=== PATIENT | female | born 1940 | race Caucasian/White ===

== ENCOUNTER → 2016-04-25 | Outpatient (CLI) | payer MEDICARE, OTHER ==
[2016-04-25 16:27] LABS: APPEARANCE,URINE CLEAR; BILIRUBIN,URINE NEGATIVE (NEGATIVE); GLUCOSE, URINE 50 mg/dL (NEGATIVE); KETONES,URINE TRACE mg/dL (NEGATIVE); LEUKOCYTE ESTERASE,URINE NEGATIVE (NEGATIVE); NITRITE,URINE NEGATIVE (NEGATIVE); PROTEIN,URINE NEGATIVE (NEGATIVE); URINE SPECIFIC GRAVITY 1.032; UROBILINOGEN,URINE NEGATIVE mg/dL (<2.0)
[2016-04-25 18:53] LABS: PROTHROMBIN TIME 13.3 SEC (11.4-15.4)
[2016-04-25 19:01] LABS: ABSOLUTE EOSINOPHILS # (AUTO) 0.2 10^3/uL (0.0-0.6); ABSOLUTE LYMPHOCYTES (AUTO) 2.2 10^3/uL (0.5-4.7); ABSOLUTE MONOCYTES (AUTO) 0.7 10^3/uL (0.1-1.4); ABSOLUTE NEUT (AUTO) 5.3 10^3/uL (1.7-8.2); BASOPHILS % (AUTO) 0.4 % (0-2); HEMATOCRIT 35.2 % (36.0-47.0); HEMOGLOBIN 11.6 g/dL (12.0-15.5); HGB HCT DIFFERENCE -0.4; LYMPHOCYTES % (AUTO) 26.2 % (13-45); MEAN CORPUSCULAR HEMOGLOBIN 27.3 pg (27.0-33.4); MEAN CORPUSCULAR VOLUME 83 fl (80-97); RED BLOOD COUNT 4.26 10^6/uL (3.72-5.28); RED CELL DISTRIBUTION WIDTH 14.8 % (11.5-14.0); SEGMENTED NEUTROPHILS % (AUTO) 63.4 % (42-78); WHITE BLOOD COUNT 8.4 10^3/uL (4.0-10.5)
[2016-04-25 19:06] LABS: ALANINE AMINOTRANSFERASE 31 U/L (9-52); ALBUMIN 4.1 g/dL (3.5-5.0); ALKALINE PHOSPHATASE 105 U/L (38-126); ANION GAP 12 (5-19); ASPARTATE AMINO TRANSFERASE 21 U/L (14-36); BILIRUBIN,TOTAL 0.6 mg/dL (0.2-1.3); BLOOD UREA NITROGEN 29 mg/dL (7-20); CARBON DIOXIDE 29 mmol/L (22-30); CHLORIDE 102 mmol/L (98-107); CREATININE RESULT 0.97 mg/dL (0.52-1.25); GLUCOSE 194 mg/dL (75-110); POTASSIUM 4.5 mmol/L (3.6-5.0); SODIUM 143.3 mmol/L (137-145); TOTAL PROTEIN 6.5 g/dL (6.3-8.2)
== END ==
LOC: LAB 15:24
PROVIDERS: ATTEND Physical Medicine & Rehabilitation Pain Medicine
DX: D64.9 Anemia, unspecified (principal); Z79.01 Long term (current) use of anticoagulants
CPT/HCPCS: 36415; 80053; 81001; 85025; 85610

== ENCOUNTER → 2016-04-28 | Outpatient (CLI) | payer MEDICARE, OTHER | LOC: RAD 12:48 | PROVIDERS: ATTEND Physical Medicine & Rehabilitation Pain Medicine | DX: M17.0 Bilateral primary osteoarthritis of knee (principal) ==

== ENCOUNTER 2016-08-24 17:24 | Emergency (ER) | payer MEDICARE, OTHER ==
--- NOTE | 2016-08-24 19:41 | ER Document Report ---
ED Medical Screen (RME) - General Chief Complaint: Fall Injury Stated Complaint: LEG SWELLING Time Seen by Provider: 08/24/16 19:31 Notes: 76-year-old female patient with diabetes, coronary artery disease, venous insufficiency and peripheral edema. Reports the swelling has been getting worse for the last several weeks, much worse past few days with increased redness to the lower legs. She was previously treated for cellulitis a few weeks back by history. She has had vein stripping in both lower extremities for using in her coronary artery bypass grafts. Also complains of a burning sensation to the bottom of her feet, she seemed surprised with the explanation being her diabetic peripheral neuropathy. Think she was ever told that she had this. The redness in the legs is more than normal, but not as bad as it was with her previous cellulitis. I have greeted and performed a rapid initial assessment of this patient. A comprehensive ED assessment and evaluation of the patient, analysis of test results and completion of the medical decision making process will be conducted by additional ED providers. TRAVEL OUTSIDE OF THE [place] IN LAST 30 DAYS: No - Related Data Allergies/Adverse Reactions: No Known Allergies Allergy (Verified 01/07/15 19:57) Past Medical History - Past Medical History Cardiac Medical History: Reports: Hx Hypercholesterolemia, Hx Hypertension Endocrine Medical History: Reports: Hx Diabetes Mellitus Type 2 Renal/ Medical History: Denies: Hx Peritoneal Dialysis Musculoskeltal Medical History: Reports Hx Arthritis Past Surgical History: Reports: Hx Cardiac Surgery - bypass x4 - Immunizations Hx Diphtheria, Pertussis, Tetanus Vaccination: - unknown Physical Exam - Vital signs Vitals: Temp Pulse Resp BP Pulse Ox 98.5 F 69 16 147/62 H 95 08/24/16 17:31 08/24/16 17:31 08/24/16 17:31 08/24/16 17:31 08/24/16 17:31 Course - Vital Signs Vital signs: Temp Pulse Resp BP Pulse Ox 98.5 F 69 16 147/62 H 95 08/24/16 17:31 08/24/16 17:31 08/24/16 17:31 08/24/16 17:31 08/24/16 17:31
[2016-08-24 20:49] LABS: ABSOLUTE EOSINOPHILS # (AUTO) 0.1 10^3/uL (0.0-0.6); ABSOLUTE LYMPHOCYTES (AUTO) 2.4 10^3/uL (0.5-4.7); ABSOLUTE MONOCYTES (AUTO) 0.7 10^3/uL (0.1-1.4); BASOPHILS % (AUTO) 0.4 % (0-2); EOSINOPHILS % (AUTO) 1.5 % (0-6); HEMATOCRIT 36.9 % (36.0-47.0); HEMOGLOBIN 11.5 g/dL (12.0-15.5); HGB HCT DIFFERENCE -2.4; LYMPHOCYTES % (AUTO) 23.3 % (13-45); MEAN CORPUSCULAR HEMOGLOBIN 25.9 pg (27.0-33.4); MEAN CORPUSCULAR HGB CONC 31.2 g/dL (32.0-36.0); MEAN CORPUSCULAR VOLUME 83 fl (80-97); MONOCYTES % (AUTO) 6.7 % (3-13); RED BLOOD COUNT 4.44 10^6/uL (3.72-5.28); RED CELL DISTRIBUTION WIDTH 15.6 % (11.5-14.0); SEGMENTED NEUTROPHILS % (AUTO) 68.1 % (42-78); WHITE BLOOD COUNT 10.2 10^3/uL (4.0-10.5)
[2016-08-24 21:01] LABS: ALANINE AMINOTRANSFERASE 27 U/L (9-52); ALBUMIN 4.4 g/dL (3.5-5.0); ALKALINE PHOSPHATASE 108 U/L (38-126); ANION GAP 13 (5-19); ASPARTATE AMINO TRANSFERASE 24 U/L (14-36); BILIRUBIN,DIRECT 0.4 mg/dL (0.0-0.4); BILIRUBIN,TOTAL 0.5 mg/dL (0.2-1.3); BLOOD UREA NITROGEN 29 mg/dL (7-20); CALCIUM 9.7 mg/dL (8.4-10.2); CARBON DIOXIDE 28 mmol/L (22-30); CHLORIDE 102 mmol/L (98-107); CREATININE RESULT 0.96 mg/dL (0.52-1.25); GLUCOSE 135 mg/dL (75-110); POTASSIUM 4.7 mmol/L (3.6-5.0); SODIUM 142.5 mmol/L (137-145); TOTAL PROTEIN 7.3 g/dL (6.3-8.2)
[2016-08-24] MEDS ORDERED: SULFAMETHOX/TRIMETH 800-160 MG/10 ML VIAL IV ONE (21:53)
[2016-08-24 21:56] LABS: APPEARANCE,URINE CLEAR; BILIRUBIN,URINE NEGATIVE (NEGATIVE); GLUCOSE, URINE NEGATIVE (NEGATIVE); KETONES,URINE NEGATIVE (NEGATIVE); LEUKOCYTE ESTERASE,URINE NEGATIVE (NEGATIVE); NITRITE,URINE NEGATIVE (NEGATIVE); PROTEIN,URINE NEGATIVE (NEGATIVE); URINE SPECIFIC GRAVITY 1.017; UROBILINOGEN,URINE NEGATIVE mg/dL (<2.0)
--- NOTE | 2016-08-24 22:10 | ER Document Report ---
ED Extremity Problem, Lower - General Chief Complaint: Fall Injury Stated Complaint: LEG SWELLING Time Seen by Provider: 08/24/16 19:31 Mode of Arrival: Ambulatory Information source: Patient TRAVEL OUTSIDE OF THE [place] IN LAST 30 DAYS: No - HPI Patient complains to provider of: Pain, Swelling Location: Ankle, Foot, Leg - BILAT. Occurred: Yesterday Where: Home Onset/Duration: Gradual Quality of pain: Dull, Fullness, Pressure Severity: Moderate Context: Other - NO INJURY OR INCIDENT Recent injury: No Associated symptoms: Painful ambulation. denies: Chest pain, Chills, Fever, Rapid heart rate, Short of breath, Unable to bear weight Exacerbated by: Hanging down, Movement, Walking Relieved by: Elevation, Rest - Related Data Allergies/Adverse Reactions: No Known Allergies Allergy (Verified 01/07/15 19:57) Past Medical History - General Information source: Patient - Social History Smoking Status: Unknown if Ever Smoked Cigarette use (# per day): No Chew tobacco use (# tins/day): No Frequency of alcohol use: None Drug Abuse: None Lives with: Family Family History: Reviewed & Not Pertinent Patient has suicidal ideation: No Patient has homicidal ideation: No - Past Medical History Cardiac Medical History: Reports: Hx Coronary Artery Disease, Hx Hypercholesterolemia, Hx Hypertension Denies: Hx Congestive Heart Failure, Hx Peripheral Vascular Disease, Hx Pulmonary Embolism Pulmonary Medical History: Reports: None EENT Medical History: Reports: None Neurological Medical History: Reports: None Endocrine Medical History: Reports: Hx Diabetes Mellitus Type 2 Renal/ Medical History: Reports: None. Denies: Hx Peritoneal Dialysis Malignancy Medical History: Reports: None GI Medical History: Reports: None Musculoskeltal Medical History: Reports Hx Arthritis Psychiatric Medical History: Reports: None Past Surgical History: Reports: Hx Cardiac Surgery - bypass x4, Hx Coronary Artery Bypass Graft - 1992 - Immunizations Hx Diphtheria, Pertussis, Tetanus Vaccination: - unknown Review of Systems - Review of Systems Constitutional: No symptoms reported. denies: Chills, Fever EENT: No symptoms reported Cardiovascular: No symptoms reported Respiratory: No symptoms reported Gastrointestinal: No symptoms reported Genitourinary: No symptoms reported Female Genitourinary: Post menopausal Musculoskeletal: See HPI Skin: See HPI Neurological/Psychological: No symptoms reported Physical Exam - Vital signs Vitals: Temp Pulse Resp BP Pulse Ox 98.5 F 69 16 147/62 H 95 07/05/17 17:31 08/24/16 17:31 08/24/16 17:31 08/24/16 17:31 08/24/16 17:31 Interpretation: Hypertensive. No: Tachycardic, Tachypneic, Febrile - General General appearance: Appears well, Alert In distress: None - HEENT Head: Normocephalic Eyes: Normal Conjunctiva: Normal Ears: Normal Nasal: Normal Mouth/Lips: Normal Mucous membranes: Normal - Respiratory Respiratory status: No respiratory distress Breath sounds: Normal - Cardiovascular Rhythm: Regular Heart sounds: Normal auscultation Murmur: No - Abdominal Inspection: Obese - Extremities General upper extremity: Normal inspection General lower extremity: Tender - LOWER LEGS, Edema - LOWER LEGS, ANKLES, FEET, Normal color - ERYTHEMA & WARMTH. No: Normal inspection - Neurological Neuro grossly intact: Yes Cognition: Normal Orientation: AAOx4 - Psychological Associated symptoms: Normal affect, Normal mood - Skin Skin Temperature: Warm Skin Moisture: Dry Skin Color: Normal Skin Turgor: Elastic Skin irregularity: Erythema - DISTAL LEGS, Tender indurated area - SLIGHT, LOWER LEGS Course - Vital Signs Vital signs: Temp Pulse Resp BP Pulse Ox 98.5 F 69 16 147/62 H 95 08/24/16 17:31 08/24/16 17:31 08/24/16 17:31 08/24/16 17:31 08/24/16 17:31 - Laboratory Result Diagrams: 08/24/16 20:16 08/24/16 20:16 Laboratory results interpreted by me: 08/24/16 08/24/16 20:16 20:16 Hgb 11.5 L MCH 25.9 L MCHC 31.2 L RDW 15.6 H BUN 29 H Est GFR (Non-Af Amer) 56 L Glucose 135 H Discharge - Discharge Condition: Stable Disposition: HOME, SELF-CARE Instructions: Cellulitis ([facility]) Additional Instructions: TAKE BACTRIM DIRECTED. KEEP YOUR FEET AND LEGS ELEVATED MUCH POSSIBLE. CONTINUE ALL OF YOUR USUAL MEDICATIONS. FOLLOW UP WITH YOUR PRIMARY CARE PROVIDER TOMORROW OR MONDAY, CALL TOMORROW A.M. FOR APPOINTMENT. RETURN TO E.R. PROMPTLY IF YOU BEGIN GETTING WORSE, ANY TIME. Prescriptions: Sulfamethoxazole/Trimethoprim [Sulfamethoxazole-Tmp Ds Tablet] 2 each PO BID # 40 tablet Referrals: NATHAN SHERWOOD MD [Primary Care Provider] - Follow up tomorrow
[2016-08-25 03:01] VITALS: BP 171/56
== END 2016-08-25 03:01 | disposition home or self-care (01) ==
LOC: ER 17:24
DX: L03.116 Cellulitis of left lower limb (principal); E78.00 Pure hypercholesterolemia, unspecified; I10 Essential (primary) hypertension; E11.9 Type 2 diabetes mellitus without complications; I25.10 Atherosclerotic heart disease of native coronary artery without angina pectoris; Z95.1 Presence of aortocoronary bypass graft; E66.9 Obesity, unspecified
CPT/HCPCS: 99283; 96374; 36415; 87040; 85025; 80053; 81001; J3490

== ENCOUNTER 2016-08-26 08:14 | Emergency (ER) | payer MEDICARE, OTHER ==
[2016-08-26] MEDS ORDERED: CETIRIZINE 10 MG TABLET PO ONE (08:47)
[2016-08-26] MEDS ORDERED: METHYLPREDNISOLONE INJ 125 MG/2 ML SDV IM ONE (08:47)
[2016-08-26] MEDS ORDERED: FAMOTIDINE 20 MG TABLET PO ONE (08:47)
--- NOTE | 2016-08-26 08:48 | ER Document Report ---
ED Allergic Reaction - General Chief Complaint: Allergic Reaction Stated Complaint: DIFFICULTY BREATHING Time Seen by Provider: 08/26/16 08:37 Mode of Arrival: Ambulatory Information source: Patient Notes: Patient is a 76-year-old female who presents to the ER today for possible allergic reaction to Bactrim. Patient was placed on Bactrim 2 days ago for cellulitis in her bilateral lower extremities, has been on Bactrim before and states that she "just get the rash." She says that when she does have Bactrim she does have to have Pepcid and Zyrtec to go with it which stopped the reaction. She does have these prescriptions filled already, however has not taken it with the Bactrim because the hives started last night and she did not take any of her morning medications this morning yet. She denies any difficulty breathing, swelling in the throat, chest tightness. She just complains of itching and hives over her body. She states she has been on multiple medications for the cellulitis and "Bactrim is the only thing that ever works." TRAVEL OUTSIDE OF THE [place] IN LAST 30 DAYS: No - Related Data Allergies/Adverse Reactions: sulfamethoxazole [From Bactrim] Allergy (Verified 08/26/16 08:20) trimethoprim [From Bactrim] Allergy (Verified 08/26/16 08:20) Past Medical History - General Information source: Patient - Social History Smoking Status: Never Smoker Family History: Reviewed & Not Pertinent Patient has suicidal ideation: No Patient has homicidal ideation: No - Past Medical History Cardiac Medical History: Reports: Hx Coronary Artery Disease, Hx Hypercholesterolemia, Hx Hypertension Denies: Hx Congestive Heart Failure, Hx Peripheral Vascular Disease, Hx Pulmonary Embolism Endocrine Medical History: Reports: Hx Diabetes Mellitus Type 2 Renal/ Medical History: Denies: Hx Peritoneal Dialysis Musculoskeltal Medical History: Reports Hx Arthritis Past Surgical History: Reports: Hx Cardiac Surgery - bypass x4, Hx Coronary Artery Bypass Graft - 1992 - Immunizations Hx Diphtheria, Pertussis, Tetanus Vaccination: - unknown Review of Systems - Review of Systems Constitutional: No symptoms reported EENT: No symptoms reported Cardiovascular: No symptoms reported Respiratory: No symptoms reported Gastrointestinal: No symptoms reported Genitourinary: No symptoms reported Female Genitourinary: No symptoms reported Musculoskeletal: No symptoms reported Skin: See HPI Hematologic/Lymphatic: No symptoms reported Neurological/Psychological: No symptoms reported Physical Exam - Vital signs Vitals: Temp Pulse Resp BP Pulse Ox 97.5 F 65 16 117/58 L 95 08/26/16 08:21 08/26/16 08:21 08/26/16 08:21 08/26/16 08:21 08/26/16 08:21 - Notes Notes: PHYSICAL EXAMINATION: GENERAL: Well-appearing and in no acute distress. HEAD: Atraumatic, normocephalic. EYES: Pupils equal round and reactive to light, extraocular movements intact, sclera anicteric, conjunctiva are normal. ENT: ear canals without erythema or foreign body, TMs pearly zhu with good bony landmarks, nares patent, oropharynx clear without exudates. Moist mucous membranes. Airway patent, no edema to the airway or oropharynx NECK: Normal range of motion, supple without lymphadenopathy LUNGS: CTAB and equal. No wheezes rales or rhonchi. HEART: Regular rate and rhythm without murmurs ABDOMEN: Soft, no tenderness. No guarding, no rebound BACK: no vertebral tenderness, normal ROM GI/: no CVA tenderness EXTREMITIES: Normal range of motion, No cyanosis. NEUROLOGICAL: Cranial nerves grossly intact. Normal sensory/motor exams. PSYCH: Normal mood, normal affect. SKIN: Warm, Dry, normal turgor, urticaria over bilateral lower, upper extremities, some on the chest and face, some excoriation present, bilateral lower extremities with erythema and 1+ pitting edema consistent with cellulitis Course - Re-evaluation Re-evalutation: 08/26/16 10:13 Patient wants to stay on the Bactrim, she really just wants me to tell her today to add the Pepcid and Zyrtec back into her regimen. She absolutely refuses to switch antibiotics stating that "I am fine, just keep me on the Bactrim and I will add any other medications to help with the hives." She did receive Pepcid and Zyrtec here as well as Solu-Medrol IM. She has no breathing difficulty or airway compromise, just hives. She has a follow-up in 5 days with her primary care provider about cellulitis. - Vital Signs Vital signs: Temp Pulse Resp BP Pulse Ox 97.5 F 65 16 117/58 L 95 08/26/16 08:21 08/26/16 08:21 08/26/16 08:21 08/26/16 08:21 08/26/16 08:21 Discharge - Discharge Clinical Impression: Cellulitis of left lower leg, Hives Condition: Stable Disposition: HOME, SELF-CARE Additional Instructions: Return immediately for any new or worsening symptoms. Follow up with primary care provider, call tomorrow to make followup appointment.
[2016-08-26 10:39] VITALS: BP 148/58
== END 2016-08-26 10:38 | disposition home or self-care (01) ==
LOC: ER 08:14
DX: L50.9 Urticaria, unspecified (principal); L03.116 Cellulitis of left lower limb; R06.00 Dyspnea, unspecified; I25.10 Atherosclerotic heart disease of native coronary artery without angina pectoris; E78.00 Pure hypercholesterolemia, unspecified; I10 Essential (primary) hypertension; E11.9 Type 2 diabetes mellitus without complications; Z88.3 Allergy status to other anti-infective agents; Z95.1 Presence of aortocoronary bypass graft
CPT/HCPCS: 99283; 96372; A9270 ×2; J2930

== ENCOUNTER 2017-01-15 03:07 | Observation (INO) | payer MEDICARE, OTHER ==
[2017-01-15 03:47] LABS: ABSOLUTE BASOPHILS # (AUTO) 0.1 10^3/uL (0.0-0.2); ABSOLUTE EOSINOPHILS # (AUTO) 0.2 10^3/uL (0.0-0.6); ABSOLUTE LYMPHOCYTES (AUTO) 2.3 10^3/uL (0.5-4.7); ABSOLUTE MONOCYTES (AUTO) 0.7 10^3/uL (0.1-1.4); ABSOLUTE NEUT (AUTO) 5.5 10^3/uL (1.7-8.2); BASOPHILS % (AUTO) 0.6 % (0-2); EOSINOPHILS % (AUTO) 1.8 % (0-6); HEMATOCRIT 36.4 % (36.0-47.0); HGB HCT DIFFERENCE -0.4; LYMPHOCYTES % (AUTO) 26.5 % (13-45); MEAN CORPUSCULAR VOLUME 82 fl (80-97); MONOCYTES % (AUTO) 7.6 % (3-13); RED BLOOD COUNT 4.46 10^6/uL (3.72-5.28); RED CELL DISTRIBUTION WIDTH 14.4 % (11.5-14.0); SEGMENTED NEUTROPHILS % (AUTO) 63.5 % (42-78); WHITE BLOOD COUNT 8.6 10^3/uL (4.0-10.5)
[2017-01-15 04:00] LABS: APPEARANCE,URINE CLEAR; BILIRUBIN,URINE NEGATIVE (NEGATIVE); GLUCOSE, URINE 50 mg/dL (NEGATIVE); KETONES,URINE NEGATIVE (NEGATIVE); LEUKOCYTE ESTERASE,URINE SMALL (NEGATIVE); NITRITE,URINE NEGATIVE (NEGATIVE); PROTEIN,URINE NEGATIVE (NEGATIVE); URINE SPECIFIC GRAVITY 1.008; UROBILINOGEN,URINE NEGATIVE mg/dL (<2.0)
--- NOTE | 2017-01-15 04:00 | ER Document Report ---
ED General - General Mode of Arrival: Medic Information source: Patient TRAVEL OUTSIDE OF THE [place] IN LAST 30 DAYS: No - HPI Onset: Just prior to arrival <PAN NOVAK - Last Filed: 01/15/17 03:51> <LIBBY PEPPER - Last Filed: 01/15/17 07:34> - General Chief Complaint: Chest Pain Stated Complaint: CHEST DISCOMFORT Time Seen by Provider: 01/15/17 03:40 Notes: Patient is a 76 year old female with a history of quadrouple cardiac bypass presents to the emergency department complaining of chest pain onset around 01: 30. Patient states that she went to bed around 2200 last night and woke up due to difficulty breathing and chest pain. Patient describes her chest pain as something heavy sitting on her chest. Patient states she thought she was having indigestion and proceeded to take a Tums, which did not help. Patient states she called her daughter who then gave her a Nitrostat which also did not help. Patient states she then called EMS and they told her to take baby aspirin prior to arrival and she did so. EMS gave her a dose of Adenosine due to her having SVT. At bedside, patient states that she feels better now and has no symptoms. (PAN NOVAK) - Related Data Allergies/Adverse Reactions: sulfamethoxazole [From Bactrim] Allergy (Verified 08/26/16 08:20) trimethoprim [From Bactrim] Allergy (Verified 08/26/16 08:20) Home Medications: Current Home Medications Atenolol 50 mg PO BID 01/15/17 [History] Atorvastatin Calcium [Lipitor 40 mg Tablet] 40 mg PO DAILY 01/15/17 [History] Gabapentin [Neurontin 300 mg Capsule] 300 mg PO Q12 01/15/17 [History] Gemfibrozil [Lopid 600 mg Tablet] 600 mg PO BID 01/15/17 [History] Glyburide/Metformin HCl [Glyburide-Metformin 5-500 mg] 1 each PO ACHSP PRN 01/15 [History] Isosorbide Dinitrate [Isordil Titradose 10 Mg Tablet] 5 mg PO BID 01/15/17 [ History] Meloxicam [Mobic] 15 mg PO DAILY 01/15/17 [History] Aurora-3/Dha/Epa/Fish Oil [Aurora 3 500 Softgel] 1 each PO DAILY 01/15/17 [History ] Paroxetine HCl [Paxil 20 mg Tablet] 20 mg PO DAILY 01/15/17 [History] Sitagliptin Phosphate [Januvia] 100 mg PO DAILY 01/15/17 [History] Valsartan/Hydrochlorothiazide [Valsartan-Hctz 320-12.5 mg Tab] 1 each PO DAILY 01/15/17 [History] Past Medical History - General Information source: Patient - Social History Smoking Status: Never Smoker Chew tobacco use (# tins/day): No Frequency of alcohol use: None Drug Abuse: None Family History: Reviewed & Not Pertinent Patient has suicidal ideation: No Patient has homicidal ideation: No - Past Medical History Cardiac Medical History: Reports: Hx Coronary Artery Disease, Hx Hypercholesterolemia, Hx Hypertension Endocrine Medical History: Reports: Hx Diabetes Mellitus Type 2 Musculoskeltal Medical History: Reports Hx Arthritis Past Surgical History: Reports: Hx Cardiac Surgery - bypass x4, Hx Coronary Artery Bypass Graft - 1992 - Immunizations Hx Diphtheria, Pertussis, Tetanus Vaccination: - unknown <PAN NOVAK - Last Filed: 01/15/17 03:51> Review of Systems - Review of Systems Constitutional: No symptoms reported EENT: No symptoms reported Cardiovascular: See HPI, Chest pain Respiratory: See HPI, Short of breath Gastrointestinal: No symptoms reported Genitourinary: No symptoms reported Female Genitourinary: No symptoms reported Musculoskeletal: No symptoms reported Skin: No symptoms reported Hematologic/Lymphatic: No symptoms reported Neurological/Psychological: No symptoms reported -: Yes All other systems reviewed and negative <PAN NOVAK - Last Filed: 01/15/17 03:51> Physical Exam <PAN NOVAK - Last Filed: 01/15/17 03:51> <LIBBY PEPPER - Last Filed: 01/15/17 07:34> - Vital signs Vitals: Pulse Ox 97 01/15/17 03:24 - Notes Notes: GENERAL: Alert, interacts well. No acute distress. HEAD: Normocephalic, atraumatic. EYES: Pupils equal, round, and reactive to light. Extraocular movements intact. ENT: Oral mucosa moist, tongue midline. NECK: Full range of motion. Supple. Trachea midline. LUNGS: Clear to auscultation bilaterally, no wheezes, rales, or rhonchi. No respiratory distress. HEART: Mild tachycardia. No murmurs, gallops, or rubs. ABDOMEN: Soft, non-tender. Non-distended. Bowel sounds present in all 4 quadrants. EXTREMITIES: Moves all 4 extremities spontaneously. 1+ pitting edema to LLE, no edema to RLE. Radial and dorsalis pedis pulses 2/4 bilaterally. No cyanosis. NEUROLOGICAL: Alert and oriented x3. Normal speech. PSYCH: Normal affect, normal mood. SKIN: Warm, dry, normal turgor. No rashes or lesions noted. (PAN NOVAK) Course - Laboratory Result Diagrams: 01/15/17 03:30 01/15/17 03:30 <PAN NOVAK - Last Filed: 01/15/17 03:51> - Laboratory Result Diagrams: 01/15/17 03:30 01/15/17 03:30 <LIBBY PEPPER - Last Filed: 01/15/17 07:34> - Re-evaluation Re-evalutation: 01/15/17 05:17 CBC unremarkable, CMP shows mild renal failure, negative troponin at 0.030. Urinalysis grossly unremarkable small leukocyte esterase but she has no symptoms and there only 9 WBCs. I am not going to treat this at this time but sent for culture. Chest x-ray is unremarkable, EKG has slightly deeper T-wave inversions than previously but no new T-wave inversions. Patient's pain has completely resolved, likely induced by the elevated heart rate however given her history of feel it is prudent to watch her for a full chest pain rule out in the hospital, discussed this with Dr. Graves the hospitalist who agrees to place her on his service in observation status on the telemetry care floor. 01/15/17 05:19 Hospitals will continue to care for her hypertension (LIBBY PEPPER) - Vital Signs Vital signs: Temp Pulse Resp BP Pulse Ox 102 H 18 170/78 H 95 01/15/17 03:39 01/15/17 07:02 01/15/17 07:02 01/15/17 07:02 - Laboratory Laboratory results interpreted by me: 01/15/17 01/15/17 01/15/17 03:30 03:30 03:30 RDW 14.4 H Sodium 146.6 H BUN 23 H Est GFR (Non-Af Amer) 56 L Glucose 166 H Direct Bilirubin 0.5 H AST 42 H TSH Urine Glucose (UA) 50 H Ur Leukocyte Esterase SMALL H 01/15/17 03:30 RDW Sodium BUN Est GFR (Non-Af Amer) Glucose Direct Bilirubin AST TSH 5.46 H Urine Glucose (UA) Ur Leukocyte Esterase - EKG Interpretation by Me Additional EKG results interpreted by me: 01/15/17 05:19 EKG shows sinus tachycardia at a rate of 105, SVT has resolved, patient continues to have T-wave inversions in leads I, aVL and V2, these are slightly deeper than prior EKG on 01/19/2016 however they are not new, left anterior hemiblock, slightly prolonged QT interval, no ST segment elevations or depressions, poor R-wave progression per my interpretation. (LIBBY PEPPER) Discharge <PAN NOVAK - Last Filed: 01/15/17 03:51> - [facility] Admitted: Telemetry <LIBBY PEPPER - Last Filed: 01/15/17 07:34> - Discharge Clinical Impression: Chest pain, rule out acute myocardial infarction Hypertension Qualifiers: Hypertension type: essential hypertension Qualified Code(s): I10 - Essential ( primary) hypertension Condition: Fair Disposition: ADMITTED OBSERVATION Scribe Attestation: 01/15/17 07:34 I personally performed the services described in the documentation, reviewed and edited the documentation which was dictated to the scribe in my presence, and it accurately records my words and actions. (LIBBY PEPPER) Scribe Documentation - Scribe Written by Jami:: Jami Taylor, 01/15/2017 04:03 acting as scribe for :: Saida <PAN NOVAK - Last Filed: 01/15/17 03:51>
[2017-01-15 04:16] LABS: ALANINE AMINOTRANSFERASE 29 U/L (9-52); ALBUMIN 4.3 g/dL (3.5-5.0); ALKALINE PHOSPHATASE 114 U/L (38-126); ANION GAP 14 (5-19); ASPARTATE AMINO TRANSFERASE 42 U/L (14-36); BILIRUBIN,DIRECT 0.5 mg/dL (0.0-0.4); BILIRUBIN,TOTAL 0.5 mg/dL (0.2-1.3); BLOOD UREA NITROGEN 23 mg/dL (7-20); CALCIUM 9.3 mg/dL (8.4-10.2); CARBON DIOXIDE 27 mmol/L (22-30); CHLORIDE 106 mmol/L (98-107); CREATINE KINASE 61 U/L (30-135); CREATININE RESULT 0.96 mg/dL (0.52-1.25); GLUCOSE 166 mg/dL (75-110); POTASSIUM 4.8 mmol/L (3.6-5.0); SODIUM 146.6 mmol/L (137-145); TOTAL PROTEIN 6.9 g/dL (6.3-8.2)
[2017-01-15 04:27] LABS: CREATINE KINASE MB 1.1 ng/mL (<4.55); TROPONIN I 0.03 ng/mL
--- NOTE | 2017-01-15 04:39 | RADIOLOGY REPORT (SQ) ---
EXAM DESCRIPTION: CHEST SINGLE VIEW COMPLETED DATE/TIME: 01/15/2017 4:26 am REASON FOR STUDY: CP COMPARISON: 01/19/2016. EXAM PARAMETERS: NUMBER OF VIEWS: One view. TECHNIQUE: Single frontal radiographic view of the chest acquired. RADIATION DOSE: NA LIMITATIONS: None. FINDINGS: LUNGS AND PLEURA: No opacities, masses or pneumothorax. No pleural effusion. MEDIASTINUM AND HILAR STRUCTURES: No masses. Contour normal. HEART AND VASCULAR STRUCTURES: Heart normal in size. Atherosclerosis. BONES: No acute findings. HARDWARE: Sternotomy. OTHER: No other significant finding. IMPRESSION: NO ACUTE RADIOGRAPHIC FINDING IN THE CHEST. TECHNICAL DOCUMENTATION: JOB ID: [id number] Primary Data- All Rights Reserved
[2017-01-15] MEDS ORDERED: ASPIRIN 325 MG TABLET PO ONE (05:12)
[2017-01-15] MEDS ORDERED: METOPROLOL TARTRATE 25 MG TABLET PO ONE ×2 (05:16→09:00)
[2017-01-15] MEDS: HEPARIN SOD (PORCINE) 5,000 UNIT/ML 1 ML SYRINGE SUBCUT SCH ×3 (05:30→21:37)
--- NOTE | 2017-01-15 06:28 | PDOC H&P ---
History of Present Illness Admission Date/PCP: 01/15/17 05:16 NATHAN SHERWOOD MD Patient complains of: Chest tightness and shortness of breath History of Present Illness: MIAN ESCOTO is a 76 year old female with a past medical history of coronary artery disease status post coronary artery bypass graft 1997, obesity, GERD, obstructive sleep apnea, diabetes and hypertension. Patient presents with 1 hour of GERD symptoms not relieved by Tums associated with shortness of breath, chest tightness and palpitations. EMS was summoned and found heart rate in the 180s she received adenosine 6 followed by 12 mg resulting in conversion to normal sinus rhythm and resolution of symptoms. She is brought to the emergency room for evaluation where she is found to have an otherwise unremarkable workup she is referred to the hospitalist for admission patient admits compliance with medication but has abstained from BiPAP 3 days for a now healed areas of folliculitis on the scalp. Past Medical History Cardiac Medical History: Reports: Coronary Artery Disease, Hyperlipidema, Hypertension Denies: Congestive Heart Failure, Peripheral Vascular Disease, Pulmonary Embolism Pulmonary Medical History: Reports: Sleep Apnea Endocrine Medical History: Reports: Diabetes Mellitus Type 2, Obesity Musculoskeltal Medical History: Reports: Arthritis Past Surgical History Past Surgical History: Reports: Coronary Artery Bypass Graft - 1992 Social History Information Source: Patient Lives with: Family Smoking Status: Never Smoker Frequency of Alcohol Use: None Hx Recreational Drug Use: No - Advance Directive Resuscitation Status: Full Code Family History Family History: CAD Parental Family History Reviewed: Yes Children Family History Reviewed: Yes Sibling(s) Family History Reviewed.: Yes Medication/Allergy Home Medications: Oxycodone HCl/Acetaminophen [Percocet 5-325 mg Tablet] 1 - 2 tab PO Q4H PRN #12 tablet 01/07/15 Azithromycin 250 mg PO DAILY #4 tablet 01/20/16 Sulfamethoxazole/Trimethoprim [Sulfamethoxazole-Tmp Ds Tablet] 2 each PO BID # 40 tablet 08/24/16 Allergies/Adverse Reactions: sulfamethoxazole [From Bactrim] Allergy (Verified 08/26/16 08:20) trimethoprim [From Bactrim] Allergy (Verified 08/26/16 08:20) Review of Systems Constitutional: ABSENT: chills, fever(s), headache(s), weight gain, weight loss Eyes: ABSENT: visual disturbances Ears: ABSENT: hearing changes Cardiovascular: ABSENT: chest pain, dyspnea on exertion, edema, orthropnea, palpitations Respiratory: ABSENT: cough, hemoptysis Gastrointestinal: ABSENT: abdominal pain, constipation, diarrhea, hematemesis, hematochezia, nausea, vomiting Genitourinary: ABSENT: dysuria, hematuria Musculoskeletal: ABSENT: joint swelling Integumentary: ABSENT: rash, wounds Neurological: ABSENT: abnormal gait, abnormal speech, confusion, dizziness, focal weakness, syncope Psychiatric: ABSENT: anxiety, depression, homidical ideation, suicidal ideation Endocrine: ABSENT: cold intolerance, heat intolerance, polydipsia, polyuria Hematologic/Lymphatic: ABSENT: easy bleeding, easy bruising Physical Exam Vital Signs: Temp Pulse Resp BP Pulse Ox 102 H 16 147/74 H 96 01/15/17 03:39 01/15/17 05:34 01/15/17 05:34 01/15/17 05:34 Intake & Output 01/13/17 01/14/17 01/15/17 11:59 11:59 11:59 Intake Total 30 Balance 30 General appearance: PRESENT: no acute distress, well-developed, well-nourished Head exam: PRESENT: atraumatic, normocephalic Eye exam: PRESENT: conjunctiva pink, EOMI, PERRLA. ABSENT: scleral icterus Ear exam: PRESENT: normal external ear exam Mouth exam: PRESENT: moist, tongue midline Neck exam: ABSENT: carotid bruit, JVD, lymphadenopathy, thyromegaly Respiratory exam: PRESENT: clear to auscultation evy. ABSENT: rales, rhonchi, wheezes Cardiovascular exam: PRESENT: RRR. ABSENT: diastolic murmur, rubs, systolic murmur Pulses: PRESENT: normal dorsalis pedis pul Vascular exam: PRESENT: normal capillary refill GI/Abdominal exam: PRESENT: normal bowel sounds, soft. ABSENT: distended, guarding, mass, organolmegaly, rebound, tenderness Rectal exam: PRESENT: deferred Extremities exam: PRESENT: full ROM. ABSENT: calf tenderness, clubbing, pedal edema Neurological exam: PRESENT: alert, awake, oriented to person, oriented to place , oriented to time, oriented to situation, CN II-XII grossly intact. ABSENT: motor sensory deficit Psychiatric exam: PRESENT: appropriate affect, normal mood. ABSENT: homicidal ideation, suicidal ideation Skin exam: PRESENT: dry, intact, warm. ABSENT: cyanosis, rash Results Impressions: Chest X-Ray 01/15/17 03:09 IMPRESSION: NO ACUTE RADIOGRAPHIC FINDING IN THE CHEST. Assessment & Plan - Diagnosis (1) SVT (supraventricular tachycardia) Is this a current diagnosis for this admission?: Yes Plan: Telemetry bed observation, beta-bayron, evaluation of thyroid function and resumption of BiPAP use (2) Obstructive sleep apnea Is this a current diagnosis for this admission?: Yes Plan: Resume BiPAP (3) Diabetes Is this a current diagnosis for this admission?: Yes Plan: Home regiment with sliding scale insulin. (4) Chest pain, rule out acute myocardial infarction Is this a current diagnosis for this admission?: Yes Plan: Anticipate troponin leak given sustained SVT symptoms however currently asymptomatic. Follow-up serial cardiac enzymes (5) Hypertension Qualifiers: Hypertension type: essential hypertension Qualified Code(s): I10 - Essential (primary) hypertension Is this a current diagnosis for this admission?: Yes Plan: Optimize with beta-bayron followed by KARINA inhibitor - Time Time Spent: 30 to 50 Minutes - Inpatient Certification Medical Necessity: Need Close Monitoring Due to Risk of Patient Decompensation
[2017-01-15 06:37] LABS: FREE T3 3.36 pg/mL (2.77-5.27)
[2017-01-15 06:51] LABS: THYROID STIMULATING HORMONE 5.46 uIU/mL (0.47-4.68)
[2017-01-15] MEDS: DOCUSATE SODIUM 100 MG CAPSULE PO SCH ×2 (09:03→17:32)
[2017-01-15] MEDS: ACETAMINOPHEN 325 MG TABLET PO PRN (10:39)
[2017-01-15] MEDS ORDERED: DEXTROSE 50%-WATER 25 GM/50 ML DISP.SYRIN IV PRN ×2 (11:29)
[2017-01-15] MEDS ORDERED: DEXTROSE 40% GEL 15 GM TUBE PO PRN ×2 (11:29)
[2017-01-15] MEDS ORDERED: INSULIN LISPRO 100 UNIT/ML 3 ML VIAL SUBCUT PRN (11:29)
[2017-01-15] MEDS ORDERED: GLUCAGON,HUMAN RECOMB 1 MG INJ IM PRN (11:29)
[2017-01-15 11:43] LABS: CREATINE KINASE MB 1.28 ng/mL (<4.55)
[2017-01-15 11:52] LABS: TROPONIN I 0.08 ng/mL
--- NOTE | 2017-01-15 14:49 | PDOC PROGRESS REPORT ---
Subjective Progress Note for:: 01/15/17 Subjective:: f/u SVT, chest pain, dyspnea per H&P: MIAN ESCOTO is a 76 year old female with a past medical history of coronary artery disease status post coronary artery bypass graft 4 1997, obesity, GERD, obstructive sleep apnea, diabetes and hypertension. Patient presents with 1 hour of GERD symptoms not relieved by Tums associated with shortness of breath, chest tightness and palpitations. EMS was summoned and found heart rate in the 180s she received adenosine 6 followed by 12 mg resulting in conversion to normal sinus rhythm and resolution of symptoms. She is brought to the emergency room for evaluation where she is found to have an otherwise unremarkable workup she is referred to the hospitalist for admission patient admits compliance with medication but has abstained from BiPAP 3 days for a now healed areas of folliculitis on the scalp. she sees dr giraldo for cardio as outpt but has no prior hx of arrhythmia that she is aware of. she thinks he performed echo in his office in the last 3 months but is unaware of the results. not sure of her last stress test either. reports resolution of chest pain when her HR controlled but still feels very SOA , particularly when lying flat or with even minimal exertion. she denies fevers /chills, cough, hemoptysis, abd pain, n/v/d, arm pain, jaw pain, N/T, [place], syncope or presyncope. she's had no recurrence of SVT since her arrival. ROS: all systems reviewed, see above, remaining systems negative. Physical Exam Vital Signs: Temp Pulse Resp BP Pulse Ox 98.0 F 77 18 162/70 H 96 01/15/17 12:03 01/15/17 14:00 01/15/17 12:03 01/15/17 12:03 01/15/17 12:03 Intake & Output 01/14/17 01/15/17 01/16/17 06:59 06:59 06:59 Intake Total 30 Balance 30 Weight 113.2 kg 113.2 kg General appearance: PRESENT: morbidly obese, well-developed Head exam: PRESENT: atraumatic Eye exam: ABSENT: conjunctival injection, scleral icterus Mouth exam: PRESENT: moist, neck supple Neck exam: PRESENT: full ROM. ABSENT: JVD, lymphadenopathy, tenderness Respiratory exam: PRESENT: crackles - bases, wheezes - faint end exp. ABSENT: accessory muscle use Cardiovascular exam: PRESENT: irregular rhythm - frequent PVCs on monitor, systolic murmur - 2/6 low rumbling murmur at right 2nd space. ABSENT: tachycardia Pulses: PRESENT: normal carotid pulses, normal radial pulses Vascular exam: PRESENT: normal capillary refill GI/Abdominal exam: PRESENT: normal bowel sounds, soft. ABSENT: tenderness Extremities exam: ABSENT: pedal edema - trace Musculoskeletal exam: PRESENT: ambulatory, full ROM Neurological exam: PRESENT: alert, awake, oriented to person, oriented to place , oriented to time, oriented to situation, reflexes normal Psychiatric exam: PRESENT: appropriate affect, normal mood Skin exam: PRESENT: dry, warm Results Laboratory Results: 01/15/17 10:53 Magnesium 1.6 01/15/17 01/15/17 10:53 10:53 Creatine Kinase 59 CK-MB (CK-2) 1.28 Troponin I 0.080 EKG Comments: ST with rate 105, [id number] but without acute ischemic changes noted Impressions: Chest X-Ray 01/15/17 03:09 IMPRESSION: NO ACUTE RADIOGRAPHIC FINDING IN THE CHEST. Assessment & Plan - Diagnosis (1) SVT (supraventricular tachycardia) Is this a current diagnosis for this admission?: Yes Plan: unclear etiology; will treat with betablocker and consult cardio for his input. replace and monitor electrolytes (2) Chest pain, rule out acute myocardial infarction Is this a current diagnosis for this admission?: Yes Plan: enzymes remain equivocal and may just reflect troponin leak from the demand ischemia related to the degree of her tachycardia. will consult dr babcock for his opinion. continue ASA, statin and betablocker (3) Diabetes Qualifiers: Diabetes mellitus type: type 2 Diabetes mellitus complication status: with unspecified complications Diabetes mellitus nursing home insulin use: with impact hammer operator use Qualified Code(s): E11.8 - Type 2 diabetes mellitus with unspecified complications; Z79.4 - reeler operator (current) use of insulin; Z79.4 - reeler operator ( current) use of insulin; Z79.4 - [facility] (current) use of insulin; Z79.4 - reeler operator (current) use of insulin Is this a current diagnosis for this admission?: Yes Plan: hold oral agents for now; cover with SSI and add long acting if needed. (4) Hypertension Qualifiers: Hypertension type: essential hypertension Qualified Code(s): I10 - Essential (primary) hypertension Is this a current diagnosis for this admission?: Yes Plan: adjust meds depending on her clinical course and tachycardia (5) Obstructive sleep apnea Is this a current diagnosis for this admission?: Yes Plan: non compliant with home regimen and may be the trigger for all this; continue home CPAP (6) Dyspnea Qualifiers: Dyspnea type: unspecified Qualified Code(s): R06.00 - Dyspnea, unspecified Is this a current diagnosis for this admission?: Yes Plan: unclear etiology; her dimer is negative arguing against thromboembolic disease. I suspect an element of obesity hypoventilation and probably some pulm HTN but not sure why the sudden change other than perhaps related to her tachycardia. Interesting though that her dyspnea did not resolve with slowing of her HR. she may yet develop some pulmonary edema as a result of the ventricular demand resulting in insufficiency but not evident to me at this time and her BNP is also reassuring. May need CT chest before its all over to get a better look. - Time Time Spent with patient: 35 or more minutes Medications reviewed and adjusted accordingly: Yes - Plan Summary Plan Summary: order repeat echo and try to get old records from her chief sales officer tomorrow.
[2017-01-15] MEDS: MAGNESIUM SULFATE/D5W 1 GM/100 ML RTUPB IV SCH ×2 (15:59→17:31)
[2017-01-15] MEDS: GEMFIBROZIL 600 MG TABLET PO SCH (17:30)
[2017-01-15] MEDS ORDERED: TRAMADOL HCL 50 MG TABLET PO PRN (17:40)
[2017-01-15 18:00] LABS: CREATINE KINASE MB 1.29 ng/mL (<4.55); TROPONIN I 0.088 ng/mL
[2017-01-15] MEDS ORDERED: ZOLPIDEM TARTRATE 5 MG TABLET PO PRN (19:57)
--- NOTE | 2017-01-15 21:00 | PDOC CONSULTATION ---
Consultation Consult Date: 01/15/17 Attending physician:: YORDAN ALVA Consult reason:: Chest pain and SVT History of Present Illness Admission Date/PCP: 01/15/17 05:16 NATHAN SHERWOOD MD Patient complains of: Chest pain History of Present Illness: MIAN ESCOTO is a 76 year old female with a past medical history of coronary artery disease status post coronary artery bypass graft 1997, obesity, GERD, obstructive sleep apnea, diabetes and hypertension. Patient presents with 1 hour of GERD symptoms not relieved by Tums associated with shortness of breath, chest tightness and palpitations. EMS was summoned and found heart rate in the 180s she received adenosine 6 followed by 12 mg resulting in conversion to normal sinus rhythm and resolution of symptoms. She is brought to the emergency room for evaluation where she is found to have an otherwise unremarkable workup she is referred to the hospitalist for admission patient admits compliance with medication but has abstained from BiPAP 3 days for a now healed areas of folliculitis on the scalp. This history was reviewed and confirmed. Patient claims to have had bypass surgery in 1992 and then has had no problems with her heart. She claims to have had a stress test about 6 months ago in [place]. She currently follows up with Dr. Contreras for her cardiology problem. Patient does have sleep apnea but does not follow up with anyone for that condition. Patient claims that she recently got a bilevel CPAP machine and had some problem using it. Past Medical History Cardiac Medical History: Reports: Coronary Artery Disease, Hyperlipidema, Hypertension Denies: Congestive Heart Failure, Peripheral Vascular Disease, Pulmonary Embolism Pulmonary Medical History: Reports: Sleep Apnea Endocrine Medical History: Reports: Diabetes Mellitus Type 2, Obesity Musculoskeltal Medical History: Reports: Arthritis Past Surgical History Past Surgical History: Reports: Coronary Artery Bypass Graft - 1992 Social History Information Source: Patient Lives with: Family Smoking Status: Former Smoker Cigarettes Packs Per Day: 2 Cigars Per Day: 0 Pipes Per Day: 0 Number of Years Smokin Last Time Smoked: 02/20/1969 Frequency of Alcohol Use: Rare Hx Recreational Drug Use: No Hx Prescription Drug Abuse: No - Advance Directive Resuscitation Status: Full Code Surrogate healthcare decision maker:: Patient's is the surrogate decision-maker Family History Family History: CAD, Hypertension Parental Family History Reviewed: Yes Children Family History Reviewed: Yes Sibling(s) Family History Reviewed.: Yes Medication/Allergy Home Medications: Acetaminophen [Tylenol Arthritis] 1,300 mg PO QAM 01/15/17 Acetaminophen [Tylenol Arthritis] 650 mg PO QHS 01/15/17 Aspirin [Aspirin EC] 81 mg PO DAILY 01/15/17 Atenolol 50 mg PO Q12 01/15/17 Atorvastatin Calcium [Lipitor 40 mg Tablet] 40 mg PO QHS 01/15/17 Gabapentin [Neurontin 300 mg Capsule] 300 mg PO Q12 01/15/17 Gemfibrozil [Lopid 600 mg Tablet] 600 mg PO BIDACBS 01/15/17 Glyburide/Metformin HCl [Glucovance 5-500 mg Tablet] 2 tab PO BIDBS 01/15/17 Insulin Glargine,Hum.rec.anlog [Lantus Solostar] 60 unit SQ QAM 01/15/17 Isosorbide Dinitrate [Isordil Titradose 10 Mg Tablet] 5 mg PO Q12 01/15/17 Meloxicam [Mobic] 15 mg PO DAILY 01/15/17 [place]-3 Fatty Acids/Fish Oil [Fish Oil 1,000 mg Capsule] 1,000 mg PO DAILY 01/15 Paroxetine HCl [Paxil 20 mg Tablet] 20 mg PO QHS 01/15/17 Sitagliptin Phosphate [Januvia] 100 mg PO DAILY 01/15/17 Tramadol HCl [Ultram 50 mg Tablet] 50 mg PO Q8HP PRN 01/15/17 Valsartan/Hydrochlorothiazide [Valsartan-Hctz 320-12.5 mg Tab] 1 tab PO DAILY Allergies/Adverse Reactions: sulfamethoxazole [From Bactrim] Allergy (Verified 01/15/17 12:56) trimethoprim [From Bactrim] Allergy (Verified 01/15/17 12:56) Review of Systems Review of Systems: Please see history of present illness and past medical history as wall. Constitutional: No fever or chills reported. Head : No recent chronic headaches, recent head injury. Eyes: No recent eye pain, diplopia, redness, discharge, acute visual changes. Ears: No recent chronic ear pain, acute hearing loss, ear discharge. Oral cavity: No recent ulcerations, bleeding, oral cavity discomfort. Neck: No recent acute neck pain reported. Hematologic: No recent easy bruising or bleeding or hematologic malignancy reported. Lymphatic: No recent lymphatic malignancy, chronic lymphadenopathy reported yet Cardiovascular system review: See history of present illness. Respiratory system review: No recent chronic cough, hemoptysis, blood clots in the lungs reported. Mild Shortness of breath on exertion Gastrointestinal system review: Negative for any recent acute or chronic abdominal pain, hematemesis, melena, recent change in bowel habits. History of gastroesophageal reflux Genitourinary system review: No recent acute or chronic hematuria, flank pain, UTI etc. reported. Skin system review: Negative for any recent abnormal bruising, no rash, no pruritus reported. Neurologic: No prior history of strokes, mini strokes, seizure disorder. History of sleep apnea Psychologic: No history of major psychosis or major depression reported. Musculoskeletal: Minor aches and pains reported. No acute joint swelling reported. Endocrine: No recent polyuria, polydipsia, recent heat or cold intolerance. Physical Exam Vital Signs: Temp Pulse Resp BP Pulse Ox 98.0 F 78 18 177/69 H 95 01/15/17 19:37 01/15/17 19:37 01/15/17 19:37 01/15/17 19:37 01/15/17 19:37 Intake & Output 01/14/17 01/15/17 01/16/17 06:59 06:59 06:59 Intake Total 30 782 Output Total 2 Balance 30 780 Weight 113.2 kg 113.2 kg Exam: GENERAL: well-nourished and in no acute distress. Alert and oriented x3 HEAD: Atraumatic, normocephalic. EYES: Pupils equal round and reactive to light, extraocular movements intact, sclera anicteric, conjunctiva are normal. ENT: TMs normal, nares patent, oropharynx clear without exudates. Moist mucous membranes. No oral ulcerations or bleeding gums noted NECK: supple without lymphadenopathy. Trachea is central. No cervical or axillary lymphadenopathy noted. Carotids are 2+, JVD WNL LUNGS: Respiration seems nonlabored, no significant accessory muscle action noted. Breath sounds clear to auscultation bilaterally and equal noted. No wheezes rales or rhonchi noted. No significant dullness noted on percussion. CHEST: Palpation of the chest wall shows no significant chest wall tenderness. No other significant abnormalities noted. HEART: [place] MENT[facility] HEALTH ADVANCED PRACTICE NURSE, No PSH, 1/6 HORTENCIA aortic area, 1/6 [place] systolic murmur mitral area, no rubs, no gallops. ABDOMEN: Soft, no significant tenderness appreciated, normoactive bowel sounds. No guarding, no rebound. No rigidity noted . No masses appreciated. EXTREMITIES: Pedal pulses are 1-2+, no calf tenderness noted. No clubbing or cyanosis.trace to 1+ pedal edema noted NEUROLOGICAL: Focused neurological exam showed no significant neurologic deficit. Normal speech, no focal weakness appreciated. PSYCH: Normal mood, normal affect. Judgment and insight within normal limits. SKIN: No significant ecchymosis, rash, ulcerations or signs of pruritus noted. MUSCULOSKELETAL EXAM: No significant joint swelling noted. Results Laboratory Results: 01/15/17 10:53 Magnesium 1.6 01/15/17 01/15/17 01/15/17 10:53 10:53 17:15 Creatine Kinase 59 56 CK-MB (CK-2) 1.28 Troponin I 0.080 01/15/17 17:15 Creatine Kinase CK-MB (CK-2) 1.29 Troponin I 0.088 EKG Comments: Sinus tachycardia, no acute ST-T wave changes noted Impressions: Chest X-Ray 01/15/17 03:09 IMPRESSION: NO ACUTE RADIOGRAPHIC FINDING IN THE CHEST. Assessment & Plan - Diagnosis (1) SVT (supraventricular tachycardia) Is this a current diagnosis for this admission?: Yes (2) Chest pain, rule out acute myocardial infarction Is this a current diagnosis for this admission?: Yes (3) Diabetes Qualifiers: Diabetes mellitus type: type 2 Diabetes mellitus complication status: with unspecified complications Diabetes mellitus intermission coordinator insulin use: with fdc use Qualified Code(s): E11.8 - Type 2 diabetes mellitus with unspecified complications; Z79.4 - technician terminal and repeater (current) use of insulin; Z79.4 - technician terminal and repeater ( current) use of insulin; Z79.4 - technician terminal and repeater (current) use of insulin; Z79.4 - technician terminal and repeater (current) use of insulin Is this a current diagnosis for this admission?: Yes (4) Dyspnea Qualifiers: Dyspnea type: unspecified Qualified Code(s): R06.00 - Dyspnea, unspecified Is this a current diagnosis for this admission?: Yes (5) Hypertension Qualifiers: Hypertension type: essential hypertension Qualified Code(s): I10 - Essential (primary) hypertension Is this a current diagnosis for this admission?: Yes (6) Obstructive sleep apnea Is this a current diagnosis for this admission?: Yes - Notes Notes: Chest pain: Most likely related to supply demand mismatch from SVT in setting of known CAD. At this point patient is chest pain-free. Continue treatment with beta-blockers, aspirin, statins, KARINA inhibitor/ARB's. If patient remains stable, further evaluation can be performed by her primary care medical operations supervisor as an outpatient. SVT: Currently patient maintaining sinus rhythm. Agree with increased dose of beta-bayron. May add Cardizem if needed. Hypertension: Currently under satisfactory control. KARINA inhibitor/ARB and beta- blockers preferred agent. Dyspnea: Currently improved. Most likely was related to tachycardia. Patient will benefit from weight loss. Sleep apnea syndrome: Patient currently on bilevel therapy. Have discussed that I will be happy to follow her in this regard. Patient currently not being followed by any other physician. - Time Time Spent: 30 to 50 Minutes - CODE STATUS was discussed, patient remains full code. Surrogate decision-maker unchanged. Multiple medical problems were addressed. More than 50% of the time spent coordinating care, discussing management plans with involved caregivers. Management plans discussed with involved personnels. Medical decision making was of moderate to high complexity , patient's has multiple comorbidities. Medications reviewed and adjusted accordingly: Yes
[2017-01-15] MEDS: GABAPENTIN 300 MG CAPSULE PO SCH (21:33)
[2017-01-15] MEDS: METOPROLOL TARTRATE 25 MG TABLET PO SCH (21:33)
[2017-01-15] MEDS: ISOSORBIDE DINITRATE 10 MG TABLET PO SCH (21:36)
[2017-01-15] MEDS ORDERED: ATORVASTATIN CALCIUM 40 MG TABLET PO SCH (22:00)
[2017-01-15] MEDS ORDERED: PAROXETINE HCL 20 MG TABLET PO SCH (22:00)
[2017-01-15 23:53] LABS: CREATINE KINASE MB 0.95 ng/mL (<4.55); TROPONIN I 0.075 ng/mL
--- NOTE | 2017-01-16 06:04 | EKG REPORT ---
SEVERITY:- ABNORMAL ECG - SINUS TACHYCARDIA LEFT ANTERIOR FASCICULAR BLOCK PROBABLE LEFT VENTRICULAR HYPERTROPHY BORDERLINE PROLONGED QT INTERVAL : Confirmed by: Emilia Ramsay MD 16-Jan-2017 06:02:48
[2017-01-16] MEDS: HEPARIN SOD (PORCINE) 5,000 UNIT/ML 1 ML SYRINGE SUBCUT SCH (06:51)
[2017-01-16] MEDS ORDERED: INSULIN GLARGINE,HUM.REC.ANLOG 300 UNIT/3 ML INSULN.PEN SUBCUT SCH (08:00)
[2017-01-16 09:52] VITALS: BP 187/65
[2017-01-16] MEDS ORDERED: (PENDING PHARMACY ID) (Valsartan/Hydrochlorothiazide [Valsartan-Hctz 320-12.5 Mg Tab] 1 EA PO SCH (10:00)
[2017-01-16] MEDS ORDERED: ASPIRIN 325 MG TABLET, ENT COATED PO SCH (10:00)
[2017-01-16] MEDS ORDERED: PAROXETINE HCL 20 MG TABLET PO SCH (10:00)
[2017-01-16] MEDS ORDERED: SITAGLIPTIN PHOSPHATE 50 MG TABLET PO SCH (10:00)
[2017-01-16] MEDS ORDERED: VALSARTAN 160 MG TABLET PO SCH (10:00)
[2017-01-16] MEDS ORDERED: HYDROCHLOROTHIAZIDE 12.5 MG CAPSULE PO SCH (10:00)
[2017-01-16] MEDS: GABAPENTIN 300 MG CAPSULE PO SCH (10:17)
[2017-01-16] MEDS: GEMFIBROZIL 600 MG TABLET PO SCH (10:17)
[2017-01-16] MEDS: ISOSORBIDE DINITRATE 10 MG TABLET PO SCH (10:17)
[2017-01-16] MEDS: DOCUSATE SODIUM 100 MG CAPSULE PO SCH (10:17)
[2017-01-16] MEDS: METOPROLOL TARTRATE 25 MG TABLET PO SCH (10:18)
[2017-01-16] MEDS: ACETAMINOPHEN 325 MG TABLET PO PRN (11:41)
--- NOTE | 2017-01-16 14:45 | PDOC DISCHARGE SUMMARY ---
General - Admit/Disc Date/PCP Admission Date/Primary Care Provider: 01/15/17 05:16 NATHAN SHERWOOD MD Discharge Date: 01/16/17 - Discharge Diagnosis (1) SVT (supraventricular tachycardia) Is this a current diagnosis for this admission?: Yes Summary: Resolved and likely triggered by noncompliance with nocturnal CPAP. Continue current regimen at home. Follow-up with cardiology as directed. (2) Chest pain, rule out acute myocardial infarction Is this a current diagnosis for this admission?: Yes Summary: Mildly elevated troponins trended down and likely related to demand ischemia from the significant tachycardia presentation. Patient had a normal stress test in 2016 and a normal echo earlier this year. 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 (3) Obstructive sleep apnea Is this a current diagnosis for this admission?: Yes Summary: Resume nocturnal CPAP. (4) Dyspnea Is this a current diagnosis for this admission?: Yes Summary: Primarily orthopnea, defer to Dr. Contreras further evaluation in his office as an outpatient. (5) Diabetes Is this a current diagnosis for this admission?: Yes (6) Hypertension Is this a current diagnosis for this admission?: Yes - Additional Information Resuscitation Status: Full Code Discharge Diet: Cardiac, Diabetic Discharge Activity: Activity As Tolerated Home Medications: Acetaminophen [Tylenol Arthritis] 1,300 mg PO QAM 01/15/17 Acetaminophen [Tylenol Arthritis] 650 mg PO QHS 01/15/17 Aspirin [Aspirin EC] 81 mg PO DAILY 01/15/17 Atorvastatin Calcium [Lipitor 40 mg Tablet] 40 mg PO QHS 01/15/17 Gabapentin [Neurontin 300 mg Capsule] 300 mg PO Q12 01/15/17 Gemfibrozil [Lopid 600 mg Tablet] 600 mg PO BIDACBS 01/15/17 Glyburide/Metformin HCl [Glucovance 5-500 mg Tablet] 2 tab PO BIDBS 01/15/17 Insulin Glargine,Hum.rec.anlog [Lantus Solostar] 60 unit SQ QAM 01/15/17 Isosorbide Dinitrate [Isordil Titradose 10 mg Tablet] 5 mg PO Q12 01/15/17 Meloxicam [Mobic] 15 mg PO DAILY 01/15/17 Isom-3 Fatty Acids/Fish Oil [Fish Oil 1,000 mg Capsule] 1,000 mg PO DAILY 01/15 Paroxetine HCl [Paxil 20 mg Tablet] 20 mg PO QHS 01/15/17 Sitagliptin Phosphate [Januvia] 100 mg PO DAILY 01/15/17 Tramadol HCl [Ultram 50 mg Tablet] 50 mg PO Q8HP PRN 01/15/17 Valsartan/Hydrochlorothiazide [Valsartan-Hctz 320-12.5 mg Tab] 1 tab PO DAILY Acetaminophen [Tylenol 325 mg Tablet] 650 mg PO Q4HP PRN tablet 01/16/17 Aspirin [Ecotrin 325 mg EC Tablet] 325 mg PO DAILY tabec 01/16/17 Metoprolol Tartrate [Lopressor 25 mg Tablet] 25 mg PO Q12 #60 tablet 01/16/17 History of Present Illness Patient complains of: Shortness of air and palpitations History of Present Illness: MIAN ESCOTO is a 76 year old female with a past medical history of coronary artery disease status post coronary artery bypass graft 1997, obesity, GERD, obstructive sleep apnea, diabetes and hypertension. Patient presents with 1 hour of GERD symptoms not relieved by Tums associated with shortness of breath, chest tightness and palpitations. Hospital Course Hospital Course: EMS was summoned and found heart rate in the 180s she received adenosine 6 followed by 12 mg resulting in conversion to normal sinus rhythm and resolution of symptoms. She is brought to the emergency room for evaluation where she is found to have an otherwise unremarkable workup she is referred to the hospitalist for admission patient admits compliance with medication but has abstained from BiPAP 3 days for a now healed areas of folliculitis on the scalp. she sees dr giraldo for cardio as outpt but has no prior hx of arrhythmia that she is aware of. she thinks he performed echo in his office in the last 3 months but is unaware of the results. not sure of her last stress test either. reports resolution of chest pain when her HR controlled but still feels very SOA , particularly when lying flat or with even minimal exertion. she denies fevers /chills, cough, hemoptysis, abd pain, n/v/d, arm pain, jaw pain, N/T, [place], syncope or presyncope. she's had no recurrence of SVT since her arrival. I discussed case with her primary mixed crop and livestock farm worker Dr. Contreras by telephone who reports echocardiogram in April of this year showing grade 2 diastolic dysfunction and normal ejection fraction and no valvular wall motion abnormalities he did not feel repeat echo is indicated at this time. Furthermore he reports a normal Lexiscan stress test in late 2015. He would like to see her in his office shortly after discharge and an appointment was made by myself with their staff for tomorrow afternoon at 1600 hrs. He also agreed with changed from atenolol to metoprolol and a prescription was provided. At this point the patient is stable for discharge home and expresses no concerns about going home at this time. Signs and symptoms that should prompt return to the emergency department were discussed with her in great detail she expresses understanding and willingness to comply with medical direction. Furthermore, she states she will immediately return to nocturnal use of her CPAP machine as this is the likely trigger for this current episode. Further evaluation and risk stratification per Dr. Contreras at follow-up tomorrow. Physical Exam Vital Signs: Temp Pulse Resp BP Pulse Ox 97.7 F 71 20 187/65 H 97 01/16/17 09:40 01/16/17 09:40 01/16/17 09:40 01/16/17 09:40 01/16/17 09:40 Intake & Output 01/15/17 01/16/17 01/17/17 06:59 06:59 06:59 Intake Total 30 1158 Output Total 2 Balance 30 1156 Weight 113.2 kg 112.7 kg General appearance: PRESENT: no acute distress Eye exam: PRESENT: EOMI Mouth exam: PRESENT: moist Respiratory exam: PRESENT: clear to auscultation evy, unlabored. ABSENT: accessory muscle use, wheezes Cardiovascular exam: PRESENT: RRR. ABSENT: systolic murmur Pulses: PRESENT: normal radial pulses Musculoskeletal exam: PRESENT: ambulatory Neurological exam: PRESENT: alert, awake, oriented to person, oriented to place , oriented to time, oriented to situation Psychiatric exam: PRESENT: appropriate affect, normal mood Results Laboratory Results: 01/15/17 01/15/17 01/15/17 10:53 10:53 17:15 Creatine Kinase 59 56 CK-MB (CK-2) 1.28 Troponin I 0.080 01/15/17 01/15/17 01/15/17 17:15 23:00 23:00 Creatine Kinase 57 CK-MB (CK-2) 1.29 0.95 Troponin I 0.088 0.075 Impressions: Chest X-Ray 01/15/17 03:09 IMPRESSION: NO ACUTE RADIOGRAPHIC FINDING IN THE CHEST. Qualifiers PATEINT BEING DISCHARGED WITH ANY OF THE FOLLOWING DIAGNOSIS?: No VTE patient discharged on overlapping Therapy?: No Reason(s) for not prescribing Overlap Therapy:: Not indicated Plan Discharge Plan: Discharge home with close outpatient follow-up. Time Spent: Greater than 30 Minutes
== END 2017-01-16 12:03 | disposition home or self-care (01) ==
LOC: ER 03:07 → EH 05:16 → 4W 11:52
PROVIDERS: ADMIT Internal Medicine; ATTEND Internal Medicine
DX: I47.1 Supraventricular tachycardia (principal); R07.89 Other chest pain; R79.89 Other specified abnormal findings of blood chemistry; G47.33 Obstructive sleep apnea (adult) (pediatric); Z91.14 Patient's other noncompliance with medication regimen; R06.01 Orthopnea; E11.8 Type 2 diabetes mellitus with unspecified complications; I10 Essential (primary) hypertension; I25.10 Atherosclerotic heart disease of native coronary artery without angina pectoris; N19 Unspecified kidney failure; E78.5 Hyperlipidemia, unspecified; Z95.1 Presence of aortocoronary bypass graft; Z87.891 Personal history of nicotine dependence; Z82.49 Family history of ischemic heart disease and other diseases of the circulatory system; Z79.82 Long term (current) use of aspirin; Z79.899 Other long term (current) drug therapy; Z79.4 Long term (current) use of insulin
CPT/HCPCS: 93005; 99285; 96372; 36415; 84439; 82553; 82962 ×2; 82550; 83735; 84100; 84443; 85025; 80053; 81001; 84484; 84481; 85379; 83880; 71010; 93010; G0378 ×3; A9270 ×19; J1644 ×2; J3490 ×2; J3475; J1815

== ENCOUNTER 2017-04-04 16:08 | Emergency (ER) | payer MEDICARE, OTHER ==
[2017-04-04] MEDS ORDERED: ONDANSETRON HCL INJ/PF 4 MG/2 ML SDV IV ONE (16:31)
[2017-04-04] MEDS ORDERED: RINGERS SOLUTION,LACTATED 1,000 ML IV ONE (16:31)
--- NOTE | 2017-04-04 16:33 | ER Document Report ---
ED Medical Screen (RME) - General Chief Complaint: Nausea/Vomiting Stated Complaint: FLU SYMPTOMS Time Seen by Provider: 04/04/17 16:24 Notes: RME DISCLOSURE I have seen this patient as part of a Rapid Medical Evaluation and, if applicable, placed any initially appropriate orders. The patient will be seen and fully evaluated, including a full history and physical exam, by a provider ( in Main ED or Fast Track) when a room becomes available. 68-year-old female here with complaints of cough congestion runny nose body aches fevers chills nausea vomiting diarrhea and abdominal cramping ongoing for the past few days. She has been unable to keep anything down. She does not currently have any abdominal pain or cramping since it is intermittent. No dysuria hematuria frequency. EXAM Tachycardic TRAVEL OUTSIDE OF THE [place] IN LAST 30 DAYS: No - Related Data Allergies/Adverse Reactions: sulfamethoxazole [From Bactrim] Allergy (Verified 01/15/17 12:56) trimethoprim [From Bactrim] Allergy (Verified 01/15/17 12:56) Past Medical History - Past Medical History Cardiac Medical History: Reports: Hx Coronary Artery Disease, Hx Hypercholesterolemia, Hx Hypertension Denies: Hx Congestive Heart Failure, Hx Peripheral Vascular Disease, Hx Pulmonary Embolism Pulmonary Medical History: Reports: Hx Sleep Apnea Endocrine Medical History: Reports: Hx Diabetes Mellitus Type 2 Renal/ Medical History: Denies: Hx Peritoneal Dialysis Musculoskeltal Medical History: Reports Hx Arthritis Past Surgical History: Reports: Hx Cardiac Surgery - bypass x4, Hx Coronary Artery Bypass Graft - 1993 - Immunizations Hx Diphtheria, Pertussis, Tetanus Vaccination: - unknown History of Influenza Vaccine for 11/2016 - 04/2017 Season: Yes Influenza Administration Date for 11/2016 - 04/2017 Season: 09/20/16 Physical Exam - Vital signs Vitals: Temp Pulse Resp BP Pulse Ox 98.5 F 116 H 20 142/67 H 95 04/04/17 16:18 04/04/17 16:18 04/04/17 16:18 04/04/17 16:18 04/04/17 16:18 Course - Vital Signs Vital signs: Temp Pulse Resp BP Pulse Ox 98.5 F 116 H 20 142/67 H 95 04/04/17 16:18 04/04/17 16:18 04/04/17 16:18 04/04/17 16:18 04/04/17 16:18
[2017-04-04 17:50] LABS: HEMOGLOBIN 12.7 g/dL (12.0-15.5); MEAN CORPUSCULAR HEMOGLOBIN 27.7 pg (27.0-33.4); MEAN CORPUSCULAR HGB CONC 33.4 g/dL (32.0-36.0); MEAN CORPUSCULAR VOLUME 83 fl (80-97); PLATELET COUNT 237 10^3/uL (150-450); RED BLOOD COUNT 4.57 10^6/uL (3.72-5.28); RED CELL DISTRIBUTION WIDTH 15.3 % (11.5-14.0); WHITE BLOOD COUNT 11.5 10^3/uL (4.0-10.5)
[2017-04-04 18:05] LABS: A TYPE INFLUENZA AG NEGATIVE (NEGATIVE); B INFLUENZA AG NEGATIVE (NEGATIVE)
[2017-04-04 18:08] LABS: ABSOLUTE LYMPHOCYTES# (MANUAL) 0.9 10^3/uL (0.5-4.7); ABSOLUTE MONOCYTES # (MANUAL) 0.7 10^3/uL (0.1-1.4); ABSOLUTE NEUTROPHILS# (MANUAL) 9.9 10^3/uL (1.7-8.2); BASOPHILS % (MANUAL) 0 % (0-2); EOSINOPHILS % (MANUAL) 0 % (0-6); LYMPHOCYTES % (MANUAL) 8 % (13-45); MONOCYTES % (MANUAL) 6 % (3-13); SEGMENTED NEUTROPHILS % (MAN) 86 % (42-78); TOTAL CELLS COUNTED 100
[2017-04-04 18:09] LABS: ANISOCYTOSIS SLIGHT; PLATELET COMMENT ADEQUATE; TOXIC GRANULATION SLIGHT
[2017-04-04 18:19] LABS: ALANINE AMINOTRANSFERASE 49 U/L (9-52); ALBUMIN 4.8 g/dL (3.5-5.0); ALKALINE PHOSPHATASE 95 U/L (38-126); ANION GAP 12 (5-19); ASPARTATE AMINO TRANSFERASE 81 U/L (14-36); BILIRUBIN,DIRECT 0.2 mg/dL (0.0-0.4); BILIRUBIN,TOTAL 0.6 mg/dL (0.2-1.3); BLOOD UREA NITROGEN 36 mg/dL (7-20); CALCIUM 10.3 mg/dL (8.4-10.2); CARBON DIOXIDE 27 mmol/L (22-30); CHLORIDE 103 mmol/L (98-107); GLUCOSE 189 mg/dL (75-110); LIPASE 270.1 U/L (23-300); POTASSIUM 4.8 mmol/L (3.6-5.0); SODIUM 142.3 mmol/L (137-145); TOTAL PROTEIN 7.4 g/dL (6.3-8.2)
[2017-04-04] MEDS ORDERED: ACETAMINOPHEN 325 MG TABLET PO ONE (20:06)
--- NOTE | 2017-04-04 20:07 | ER Document Report ---
ED General - General Chief Complaint: Nausea/Vomiting Stated Complaint: FLU SYMPTOMS Time Seen by Provider: 04/04/17 16:24 Mode of Arrival: Ambulatory Information source: Patient Notes: 76-year-old female presents with complaints of generalized body aches nonproductive cough fevers chills nausea vomiting and diarrhea. Patient notes symptoms started all of a sudden this morning. She denies any actual chest pain. Patient's grandson had similar symptoms was tested negative for the flu. TRAVEL OUTSIDE OF THE [place] IN LAST 30 DAYS: No - HPI Onset: This morning Onset/Duration: Sudden Quality of pain: Achy Severity: Mild Pain Level: 1 Associated symptoms: Body/muscle aches, Chills, Diarrhea, Fever, Nausea, Vomiting Exacerbated by: Denies Relieved by: Denies Similar symptoms previously: No Recently seen / treated by doctor: No - Related Data Allergies/Adverse Reactions: sulfamethoxazole [From Bactrim] Allergy (Verified 01/15/17 12:56) trimethoprim [From Bactrim] Allergy (Verified 01/15/17 12:56) Past Medical History - Social History Smoking Status: Never Smoker Cigarette use (# per day): No Chew tobacco use (# tins/day): No Smoking Education Provided: No Family History: CAD, Hypertension Patient has suicidal ideation: No Patient has homicidal ideation: No - Past Medical History Cardiac Medical History: Reports: Hx Coronary Artery Disease, Hx Hypercholesterolemia, Hx Hypertension Denies: Hx Congestive Heart Failure, Hx Peripheral Vascular Disease, Hx Pulmonary Embolism Pulmonary Medical History: Reports: Hx Sleep Apnea Endocrine Medical History: Reports: Hx Diabetes Mellitus Type 2 Renal/ Medical History: Denies: Hx Peritoneal Dialysis Musculoskeltal Medical History: Reports Hx Arthritis Past Surgical History: Reports: Hx Cardiac Surgery - bypass x4, Hx Coronary Artery Bypass Graft - 1993 - Immunizations Hx Diphtheria, Pertussis, Tetanus Vaccination: - unknown Review of Systems - Review of Systems Notes: REVIEW OF SYSTEMS: CONSTITUTIONAL : Admits to fevers and chills EENT: Denies eye, ear, throat, or mouth pain or symptoms. Denies nasal or sinus congestion or discharge. Denies throat, tongue, or mouth swelling or difficulty swallowing. CARDIOVASCULAR: Denies chest pain. Denies palpitations or racing or irregular heart beat. Denies ankle edema. RESPIRATORY: Denies cough, cold, or chest congestion. Denies shortness of breath, difficulty breathing, or wheezing. GASTROINTESTINAL: Admits to nausea vomiting diarrhea GENITOURINARY: Denies difficulty urinating, painful urination, burning, frequency, blood in urine, or discharge. FEMALE GENITOURINARY: Denies vaginal bleeding, heavy or abnormal periods, irregular periods. Denies vaginal discharge or odor. MUSCULOSKELETAL: D admits to generalized body aches SKIN: Denies rash, lesions or sores. HEMATOLOGIC : Denies easy bruising or bleeding. LYMPHATIC: Denies swollen, enlarged glands. NEUROLOGICAL: Denies confusion or altered mental status. Denies passing out or loss of consciousness. Denies dizziness or lightheadedness. Denies headache. Denies weakness or paralysis or loss of use of either side. Denies problems with gait or speech. Denies sensory loss, numbness, or tingling. Denies seizures. PSYCHIATRIC: Denies anxiety or stress. Denies depression, suicidal ideation, or homicidal ideation. ALL OTHER SYSTEMS REVIEWED AND NEGATIVE. PHYSICAL EXAMINATION: GENERAL: Febrile but well-appearing, well-nourished and in no acute distress. HEAD: Atraumatic, normocephalic. EYES: Pupils equal round and reactive to light, extraocular movements intact, conjunctiva are normal. ENT: Nares patent, oropharynx clear without exudates. Moist mucous membranes. NECK: Normal range of motion, supple without lymphadenopathy LUNGS: Breath sounds clear to auscultation bilaterally and equal. No wheezes rales or rhonchi. HEART: Initially tachycardic upon arrival improved with fluids ABDOMEN: Soft, nontender, nondistended abdomen. No guarding, no rebound. No masses appreciated. Female : deferred Musculoskeletal: Normal range of motion, no pitting or edema. No cyanosis. NEUROLOGICAL: Cranial nerves grossly intact. Normal speech, normal gait. Normal sensory, motor exams PSYCH: Normal mood, normal affect. SKIN: Warm, Dry, normal turgor, no rashes or lesions noted. Dictation was performed using [employer] voice recognition software Physical Exam - Vital signs Vitals: Temp Pulse Resp BP Pulse Ox 98.5 F 116 H 20 142/67 H 95 04/04/17 16:18 04/04/17 16:18 04/04/17 16:18 04/04/17 16:18 04/04/17 16:18 Course - Re-evaluation Re-evalutation: 04/04/17 23:18 Patient's presentation is consistent with viral versus flulike infectious process. Her lab work noted no significant abnormalities, she was noted to be febrile and was given Tylenol. Patient was discussed risks and benefits of Tamiflu and defers at this time. Patient notes significant improvement after IV fluids and nausea control and I will dispense home with nausea control as well After performing a Medical Screening Examination, I estimate there is LOW risk for ACUTE CORONARY SYNDROME, PULMONARY EMBOLI, RESPIRATORY FAILURE, SEPSIS OR MENINGITIS, thus I consider the discharge disposition reasonable. I have reevaluated this patient multiple times and no significant life threatening changes are noted. The patient and I have discussed the diagnosis and risks, and we agree with discharging home with close follow-up. We also discussed returning to the Emergency Department immediately if new or worsening symptoms occur. We have discussed the symptoms which are most concerning (e.g., changing or worsening pain, trouble swallowing or breathing, neck stiffness, fever) that necessitate immediate return. - Vital Signs Vital signs: Temp Pulse Resp BP Pulse Ox 101.1 F H 100 20 126/48 H 95 04/04/17 20:00 04/04/17 20:00 04/04/17 20:00 04/04/17 20:00 04/04/17 20:00 - Laboratory Result Diagrams: 04/04/17 17:20 04/04/17 17:20 Laboratory results interpreted by me: 04/04/17 04/04/17 17:20 17:20 WBC 11.5 H RDW 15.3 H Seg Neuts % (Manual) 86 H Lymphocytes % (Manual) 8 L Abs Neuts (Manual) 9.9 H BUN 36 H Est GFR (Non-Af Amer) 52 L Glucose 189 H Calcium 10.3 H AST 81 H Discharge - Discharge Clinical Impression: Nausea vomiting and diarrhea Fever Qualifiers: Fever type: unspecified Qualified Code(s): R50.9 - Fever, unspecified URI (upper respiratory infection) Qualifiers: URI type: unspecified URI Qualified Code(s): J06.9 - Acute upper respiratory infection, unspecified Hypertension Qualifiers: Hypertension type: essential hypertension Qualified Code(s): I10 - Essential ( primary) hypertension Condition: Stable Disposition: HOME, SELF-CARE Instructions: Viral Syndrome ([facility]) Additional Instructions: Follow up with your physician tomorrow for further care or return to the ED IMMEDIATELY if symptoms worsen or new concerns occur. If you cannot afford to follow up with your primary care physician a list of low cost clinics have been provided at the end of your discharge papers as well. Prescriptions: Ondansetron [Zofran Odt 4 mg Tablet] 1 - 2 tab PO Q4H PRN #15 tab.rapdis PRN Reason: For Nausea/Vomiting Referrals: NATHAN SHERWOOD MD [Primary Care Provider] - Follow up as needed
[2017-04-04 20:08] VITALS: BP 126/48
[2017-04-04] MEDS ORDERED: ONDANSETRON ODT 4 MG TAB (6 TAB/ER DISP) PO PRN (20:08)
--- NOTE | 2017-04-05 09:30 | EKG REPORT ---
SEVERITY:- ABNORMAL ECG - SINUS TACHYCARDIA PROBABLE LEFT ATRIAL ABNORMALITY LEFT ANTERIOR FASCICULAR BLOCK PROBABLE LVH WITH SECONDARY REPOL ABNRM : Confirmed by: Aubree Bob 05-Apr-2017 09:30:09
== END 2017-04-04 20:20 | disposition home or self-care (01) ==
LOC: ER 16:08
DX: R11.2 Nausea with vomiting, unspecified (principal); R19.7 Diarrhea, unspecified; J06.9 Acute upper respiratory infection, unspecified; R50.9 Fever, unspecified; R05 Cough; M79.1 Myalgia; I25.10 Atherosclerotic heart disease of native coronary artery without angina pectoris; I10 Essential (primary) hypertension; E11.9 Type 2 diabetes mellitus without complications; Z95.1 Presence of aortocoronary bypass graft; Z88.1 Allergy status to other antibiotic agents
CPT/HCPCS: 93005; 99283; 96361; 96374; 36415; 83690; 85025; 80053; 87804; 93010; A9270 ×2; J2405; J7120

== ENCOUNTER 2017-09-02 11:27 | Observation (INO) | payer MEDICARE, OTHER ==
[2017-09-02] MEDS ORDERED: ASPIRIN 81 MG TABLET, CHEWABLE PO ONE (11:29)
[2017-09-02 11:55] LABS: ABSOLUTE EOSINOPHILS # (AUTO) 0.1 10^3/uL (0.0-0.6); ABSOLUTE LYMPHOCYTES (AUTO) 1.5 10^3/uL (0.5-4.7); ABSOLUTE MONOCYTES (AUTO) 0.5 10^3/uL (0.1-1.4); ABSOLUTE NEUT (AUTO) 4.2 10^3/uL (1.7-8.2); BASOPHILS % (AUTO) 0.4 % (0-2); EOSINOPHILS % (AUTO) 1.2 % (0-6); HEMATOCRIT 31.7 % (36.0-47.0); HEMOGLOBIN 10.5 g/dL (12.0-15.5); LYMPHOCYTES % (AUTO) 24.4 % (13-45); MEAN CORPUSCULAR HEMOGLOBIN 27.5 pg (27.0-33.4); MEAN CORPUSCULAR HGB CONC 33.1 g/dL (32.0-36.0); MEAN CORPUSCULAR VOLUME 83 fl (80-97); MONOCYTES % (AUTO) 7.3 % (3-13); PLATELET COUNT 239 10^3/uL (150-450); RED BLOOD COUNT 3.81 10^6/uL (3.72-5.28); RED CELL DISTRIBUTION WIDTH 15.6 % (11.5-14.0); SEGMENTED NEUTROPHILS % (AUTO) 66.7 % (42-78); TOTAL CELLS COUNTED % (AUTO) 100 %; WHITE BLOOD COUNT 6.3 10^3/uL (4.0-10.5)
[2017-09-02 12:15] LABS: ALANINE AMINOTRANSFERASE 25 U/L (9-52); ALKALINE PHOSPHATASE 117 U/L (38-126); ANION GAP 11 (5-19); ASPARTATE AMINO TRANSFERASE 25 U/L (14-36); BILIRUBIN,DIRECT 0.3 mg/dL (0.0-0.4); BILIRUBIN,TOTAL 0.5 mg/dL (0.2-1.3); BLOOD UREA NITROGEN 30 mg/dL (7-20); CALCIUM 9.6 mg/dL (8.4-10.2); CARBON DIOXIDE 25 mmol/L (22-30); CHLORIDE 109 mmol/L (98-107); CREATINE KINASE 34 U/L (30-135); GLUCOSE 175 mg/dL (75-110); POTASSIUM 5.1 mmol/L (3.6-5.0); SODIUM 144.5 mmol/L (137-145); TOTAL PROTEIN 6.6 g/dL (6.3-8.2)
[2017-09-02 12:22] LABS: CREATINE KINASE MB 0.76 ng/mL (<4.55)
--- NOTE | 2017-09-02 12:23 | RADIOLOGY REPORT (SQ) ---
EXAM DESCRIPTION: CHEST SINGLE VIEW COMPLETED DATE/TIME: 09/02/2017 12:15 pm REASON FOR STUDY: cp COMPARISON: 01/15/2017 EXAM PARAMETERS: NUMBER OF VIEWS: One view. TECHNIQUE: Single frontal radiographic view of the chest acquired. RADIATION DOSE: NA LIMITATIONS: None. FINDINGS: LUNGS AND PLEURA: No opacities, masses or pneumothorax. No pleural effusion. MEDIASTINUM AND HILAR STRUCTURES: No masses. Contour normal. HEART AND VASCULAR STRUCTURES: Heart normal in size. Normal vasculature. BONES: Sternal wires HARDWARE: Left shoulder prosthesis OTHER: No other significant finding. IMPRESSION: NO ACUTE RADIOGRAPHIC FINDING IN THE CHEST. TECHNICAL DOCUMENTATION: JOB ID: [id number] [employer]- All Rights Reserved Reading location - IP/workstation name: [email or web address]
[2017-09-02 12:38] LABS: TROPONIN I 0.114 ng/mL
[2017-09-02] MEDS ORDERED: ONDANSETRON 4 MG TAB.RAPDIS PO ONE (13:19)
[2017-09-02] MEDS ORDERED: MORPHINE SULFATE 10 MG/ML INJ IV ONE (13:19)
[2017-09-02] MEDS ORDERED: NORMAL SALINE 500 ML IV ONE (14:06)
--- NOTE | 2017-09-02 14:41 | RADIOLOGY REPORT (SQ) ---
EXAM DESCRIPTION: CTA CHEST COMPLETED DATE/TIME: 09/02/2017 2:22 pm REASON FOR STUDY: recent surgery cp COMPARISON: None. TECHNIQUE: CT scan of the chest performed using helical scanning technique with dynamic intravenous contrast injection. Images reviewed with lung, soft tissue and bone windows. Reconstructed coronal and sagittal MPR images reviewed. Additional 3 dimensional post-processing performed to develop Maximal Intensity Projection images (IA P). All images stored on PACS. All CT scanners at this facility use dose modulation, iterative reconstruction, and/or weight based d osing when appropriate to reduce radiation dose to as low as reasonably achievable (ALARA). [facility]: Dose Right [facility]: CareDose [facility]: Dose Right [facility]: Teradose 4D [facility]: ZingCheckout CONTRAST TYPE AND DOSE: contrast/concentration: Isovue 370.00 mg/ml; Total Contrast Delivered: 77.0 ml; Total Saline Delivered: 110.0 ml Contrast bolus optimized for the pulmonary arteries. Not diagnostic for the aorta. RENAL FUNCTION: GFR > 60. RADIATION DOSE: CT Rad equipment meets quality standard of care and radiation dose reduction techniq ues were employed. CTDIvol: 45.4 - 46.9 mGy. DLP: 1795 mGy-cm. . LIMITATIONS: None. FINDINGS: LUNGS AND PLEURA: No masses, infiltrates, or pneumothorax. Scattered chronic interstitial changes -scarring. No pleural effusions or pleural calcifications. AORTA AND GREAT VESSELS: No aneurysm. Contrast bolus not optimized for the aorta. HEART: No pericardial effusion. Heavy coronary artery calcifications. PULMONARY ARTERIES: No emboli visualized in the main pulmonary arteries or the segmental branches. HILAR AND MEDIASTINAL STRUCTURES: No identified masses or abnormal nodes. HARDWARE: None in the chest. UPPER ABDOMEN: No significant findings. Limited exam. THYROID AND OTHER SOFT TISSUES: Bilateral hypodense thyroid nodules. No adenopathy. BONES: No acute finding. 3D MIPS: Confirm above findings. OTHER: No other significant finding. IMPRESSION: No emboli visualized in the main pulmonary arteries or the segmental branches. COMMENT: Quality ID # [id number]: Final reports with documentation of one or more dose reduction techniques (e.g., Automated exposure control, adjustment of the mA and/or kV according to patient size, use of iterative reconstruction technique) TECHNICAL DOCUMENTATION: JOB ID: [id number] [place]-72 2010 [email or web address]- All Rights Reserved Reading location - IP/workstation name: [email or web address]
--- NOTE | 2017-09-02 15:03 | ER Document Report ---
ED General - General Chief Complaint: Chest Pain Stated Complaint: GENERAL WEAKNESS Time Seen by Provider: 09/02/17 13:05 TRAVEL OUTSIDE OF THE [place] IN LAST 30 DAYS: No - HPI Patient complains to provider of: Chest pain Notes: Patient coming in for reevaluation of chest pain. Patient states mostly indigestion and feeling like an elephant sitting on her chest ongoing for the last 24 hours. Patient does have a history of recent shoulder surgery to the left states she is on pain medication for her shoulder however did not take them this morning. Patient states otherwise no recent travel does have a history of coronary artery disease with bypass surgery performed 1992. Patient states feelings of indigestion and pressure in her chest are similar to when she had bypass surgery with her last heart attack. Patient otherwise is diabetic hyperlipidemic with history of hypertension. Patient upon my evaluation is resting company complaining of left shoulder pain however states is mostly from her surgery not similar to symptoms that she is concerned about with her chest. - Related Data Allergies/Adverse Reactions: sulfamethoxazole [From Bactrim] Allergy (Verified 09/02/17 12:59) trimethoprim [From Bactrim] Allergy (Verified 09/02/17 12:59) Past Medical History - Social History Smoking Status: Former Smoker Chew tobacco use (# tins/day): No Frequency of alcohol use: None Drug Abuse: None Family History: CAD, Hypertension Patient has suicidal ideation: No Patient has homicidal ideation: No - Past Medical History Cardiac Medical History: Reports: Hx Coronary Artery Disease, Hx Hypercholesterolemia, Hx Hypertension Denies: Hx Congestive Heart Failure, Hx Peripheral Vascular Disease, Hx Pulmonary Embolism Pulmonary Medical History: Reports: Hx Sleep Apnea Endocrine Medical History: Reports: Hx Diabetes Mellitus Type 2 Renal/ Medical History: Denies: Hx Peritoneal Dialysis Musculoskeletal Medical History: Reports Hx Arthritis Past Surgical History: Reports: Hx Cardiac Surgery - bypass x4, Hx Coronary Artery Bypass Graft - 1992 - Immunizations Hx Diphtheria, Pertussis, Tetanus Vaccination: - unknown Review of Systems - Review of Systems Constitutional: No symptoms reported EENT: No symptoms reported Cardiovascular: Chest pain - Chest pressure with indigestion Respiratory: No symptoms reported Gastrointestinal: No symptoms reported Genitourinary: No symptoms reported Female Genitourinary: No symptoms reported Musculoskeletal: No symptoms reported Skin: No symptoms reported Hematologic/Lymphatic: No symptoms reported Neurological/Psychological: No symptoms reported -: Yes All other systems reviewed and negative Physical Exam - Vital signs Vitals: Temp Pulse Resp BP Pulse Ox 98.6 F 76 17 150/59 H 95 09/02/17 11:29 09/02/17 11:29 09/02/17 11:29 09/02/17 11:29 09/02/17 11:29 Interpretation: Normal - General General appearance: Appears well, Alert - HEENT Head: Normocephalic, Atraumatic Eyes: Normal Pupils: PERRL - Respiratory Respiratory status: No respiratory distress Chest status: Nontender Breath sounds: Normal Chest palpation: Normal - Cardiovascular Rhythm: Regular Heart sounds: Normal auscultation Murmur: No - Abdominal Inspection: Normal Distension: No distension Bowel sounds: Normal Tenderness: Nontender Organomegaly: No organomegaly - Back Back: Normal, Nontender - Extremities General upper extremity: Normal color. No: Normal inspection - Left shoulder shows surgical site with Steri-Strips wound well-healed no signs of infection range of motion limited due to the surgery of the left shoulder. Left shoulder is tender otherwise right upper extremities normal examination General lower extremity: Normal inspection, Nontender, Normal color, Normal ROM , Normal temperature, Normal weight bearing. No: Cliff's sign - Neurological Neuro grossly intact: Yes Cognition: Normal Orientation: AAOx4 [place] Coma Scale Eye Opening: Spontaneous [place] Coma Scale Verbal: Oriented [place] Coma Scale Motor: Obeys Commands Michele Coma Scale Total: 15 Speech: Normal Motor strength normal: LUE, RUE, LLE, RLE Sensory: Normal - Psychological Associated symptoms: Normal affect, Normal mood - Skin Skin Temperature: Warm Skin Moisture: Dry Skin Color: Normal Course - Re-evaluation Re-evalutation: 09/02/17 16:03 Patient's troponin 0 0.1. Patient EKG does show some new T-wave inversions V2. Patient did undergo CTA of due to recent surgery this was otherwise negative. Patient's case was discussed with hospitalist will admit the patient for further evaluation - Vital Signs Vital signs: Temp Pulse Resp BP Pulse Ox 98.7 F 76 17 144/66 H 94 09/02/17 11:41 09/02/17 11:29 09/02/17 12:01 09/02/17 12:01 09/02/17 12:01 - Laboratory Result Diagrams: 09/02/17 11:40 09/02/17 11:40 Laboratory results interpreted by me: 09/02/17 09/02/17 11:40 11:40 Hgb 10.5 L Hct 31.7 L RDW 15.6 H Potassium 5.1 H Chloride 109 H BUN 30 H Est GFR (Non-Af Amer) 57 L Glucose 175 H Discharge - Discharge Clinical Impression: Chest pain, rule out acute myocardial infarction, Obstructive sleep apnea Diabetes Qualifiers: Diabetes mellitus assisted insulin use: unspecified assisted insulin use status Diabetes mellitus complication status: with unspecified complications Left shoulder pain Qualifiers: Chronicity: acute Qualified Code(s): M25.512 - Pain in left shoulder Condition: Good Disposition: ADMITTED OBSERVATION Referrals: NATHAN SHERWOOD MD [Primary Care Provider] - Follow up as needed
--- NOTE | 2017-09-02 16:00 | PDOC H&P ---
History of Present Illness Admission Date/PCP: NATHAN SHERWOOD MD Patient complains of: " I feel the way I did right before my by-pass surgery". History of Present Illness: MIAN ESCOTO is a 77 year old female with a past medical history that includes coronary artery disease and recent left shoulder surgery. The patient presented to the emergency department with a chief complaint of 4-day history of having intermittent sensations that are consistent with her previous OK. According to the patient she has been having frequent belching and indigestion for 4 days now. Patient has not taken any medication for it. Patient states that both of her ears burn which is her sign of angina. 2 days ago the patient also started a new medication for urinary frequency and urgency. Patient does not endorse actual chest pain. Although the patient states that her left shoulder where she had her surgery is hurting more than she thinks it should. The patient does not endorse activity intolerance citing that she is chronically short of breath with minimal activity. Upon presentation in the emergency department the patient's troponin was found to be 0.114 EKG did reveal a mild change of T wave inversion in V2 which is new in comparison to previous EKG. The patient is comfortable at the time of admission states that she feels ear discomfort that she associates with angina. 09/02/17 11:40 CK-MB (CK-2) 0.76 Troponin I 0.114 Past Medical History Cardiac Medical History: Reports: Coronary Artery Disease, Hyperlipidema, Hypertension, Other - SVT 12/06 Pulmonary Medical History: Reports: Sleep Apnea Endocrine Medical History: Reports: Diabetes Mellitus Type 2, Obesity GI Medical History: Reports: Gastroesophageal Reflux Disease Musculoskeltal Medical History: Reports: Arthritis Past Surgical History Past Surgical History: Reports: Coronary Artery Bypass Graft - 1997, Orthopedic Surgery - Left shoulder 2 weeks ago, Other - Ablasion after SVT Social History Information Source: Patient Occupation: Retired Lives with: Family Smoking Status: Former Smoker Frequency of Alcohol Use: Rare Hx Recreational Drug Use: No Hx Prescription Drug Abuse: No - Advance Directive Resuscitation Status: Full Code Surrogate healthcare decision maker:: Daughter Family History Family History: CAD, Hypertension Parental Family History Reviewed: Yes Children Family History Reviewed: Yes Sibling(s) Family History Reviewed.: Yes Medication/Allergy Home Medications: Acetaminophen [Tylenol Arthritis] 650 mg PO TID 09/02/17 Amlodipine Besylate/Benazepril [Lotrel 10-40 mg Capsule] 1 each PO DAILY Aspirin 81 mg PO DAILY 09/02/17 Atorvastatin Calcium [Lipitor 40 mg Tablet] 40 mg PO QHS 09/02/17 Diphenhydramine HCl 25 mg PO PRN PRN 09/02/17 Gabapentin 300 mg PO BID 09/02/17 Gemfibrozil [Lopid 600 mg Tablet] 600 mg PO BID 09/02/17 Glyburide/Metformin HCl [Glucovance 5-500 mg Tablet] 2 each PO DAILY 09/02/17 Hydrocodone/Acetaminophen [[place] 5-325 mg Tablet] 1 tab PO PRN PRN 09/02/17 Isosorbide Dinitrate 5 mg PO BID 09/02/17 Meloxicam 15 mg PO DAILY 09/02/17 Metformin HCl 1,000 mg PO QHS 09/02/17 Metoprolol Tartrate 25 mg PO BID 09/02/17 Mirabegron [Myrbetriq] 25 mg PO PRN PRN 09/02/17 Paroxetine HCl [Paxil 20 mg Tablet] 20 mg PO DAILY 09/02/17 Sitagliptin Phosphate [Januvia 50 mg Tablet] 100 mg PO DAILY 09/02/17 Tramadol HCl 50 mg PO PRN PRN 09/02/17 Valsartan/Hydrochlorothiazide [Diovan Hct 320-12.5 mg Tab] 1 each PO DAILY 09/02 Allergies/Adverse Reactions: sulfamethoxazole [From Bactrim] Allergy (Verified 09/02/17 12:59) trimethoprim [From Bactrim] Allergy (Verified 09/02/17 12:59) Review of Systems Constitutional: ABSENT: chills, fever(s), headache(s), weight gain, weight loss Eyes: ABSENT: visual disturbances Ears: ABSENT: hearing changes Cardiovascular: PRESENT: dyspnea on exertion. ABSENT: chest pain, edema, orthropnea, palpitations Respiratory: ABSENT: cough, hemoptysis Gastrointestinal: PRESENT: diarrhea - chronic, heartburn, nausea. ABSENT: abdominal pain, constipation, hematemesis, hematochezia, vomiting Genitourinary: PRESENT: other - Urgency, frequency. ABSENT: dysuria, hematuria Musculoskeletal: PRESENT: other - Shoulder postsurgical tenderness. ABSENT: joint swelling Integumentary: ABSENT: rash, wounds Neurological: ABSENT: abnormal gait, abnormal speech, confusion, dizziness, focal weakness, syncope Psychiatric: ABSENT: anxiety, depression, homidical ideation, suicidal ideation Endocrine: ABSENT: cold intolerance, heat intolerance, polydipsia, polyuria Hematologic/Lymphatic: ABSENT: easy bleeding, easy bruising Physical Exam Vital Signs: Temp Pulse Resp BP Pulse Ox 98.7 F 76 17 144/66 H 94 09/02/17 11:41 09/02/17 11:29 09/02/17 12:01 09/02/17 12:01 09/02/17 12:01 Intake & Output 08/31/17 09/01/17 09/02/17 23:59 23:59 23:59 Weight 106.594 kg General appearance: PRESENT: no acute distress, cooperative, morbidly obese, well-developed Head exam: PRESENT: atraumatic, normocephalic Eye exam: PRESENT: conjunctiva pink, EOMI, PERRLA. ABSENT: scleral icterus Ear exam: PRESENT: normal external ear exam Mouth exam: PRESENT: moist, tongue midline Neck exam: ABSENT: carotid bruit, JVD, lymphadenopathy, thyromegaly Respiratory exam: PRESENT: clear to auscultation evy. ABSENT: rales, rhonchi, wheezes Cardiovascular exam: PRESENT: RRR. ABSENT: diastolic murmur, rubs, systolic murmur Pulses: PRESENT: normal dorsalis pedis pul Vascular exam: PRESENT: normal capillary refill GI/Abdominal exam: PRESENT: normal bowel sounds, soft. ABSENT: distended, guarding, mass, organolmegaly, rebound, tenderness Rectal exam: PRESENT: deferred Extremities exam: ABSENT: calf tenderness, clubbing, pedal edema Neurological exam: PRESENT: alert, awake, oriented to person, oriented to place , oriented to time, oriented to situation, CN II-XII grossly intact. ABSENT: motor sensory deficit Psychiatric exam: PRESENT: appropriate affect, normal mood. ABSENT: homicidal ideation, suicidal ideation Skin exam: PRESENT: dry, intact, warm. ABSENT: cyanosis, rash Results Laboratory Results: 09/02/17 11:40 09/02/17 11:40 09/02/17 09/02/17 11:40 11:40 WBC 6.3 RBC 3.81 Hgb 10.5 L Hct 31.7 L MCV 83 MCH 27.5 MCHC 33.1 RDW 15.6 H Plt Count 239 Seg Neutrophils % 66.7 Lymphocytes % 24.4 Monocytes % 7.3 Eosinophils % 1.2 Basophils % 0.4 Absolute Neutrophils 4.2 Absolute Lymphocytes 1.5 Absolute Monocytes 0.5 Absolute Eosinophils 0.1 Absolute Basophils 0.0 Sodium 144.5 Potassium 5.1 H Chloride 109 H Carbon Dioxide 25 Anion Gap 11 BUN 30 H Creatinine 0.94 Est GFR ( Amer) > 60 Est GFR (Non-Af Amer) 57 L Glucose 175 H Calcium 9.6 Total Bilirubin 0.5 AST 25 ALT 25 Alkaline Phosphatase 117 Total Protein 6.6 Albumin 4.0 09/02/17 09/02/17 11:40 11:40 Creatine Kinase 34 CK-MB (CK-2) 0.76 Troponin I 0.114 Impressions: Chest X-Ray 09/02/17 11:29 IMPRESSION: NO ACUTE RADIOGRAPHIC FINDING IN THE CHEST. Chest/Abdomen CTA 09/02/17 13:05 IMPRESSION: No emboli visualized in the main pulmonary arteries or the segmental branches. Assessment & Plan - Diagnosis (1) Chest pain, rule out acute myocardial infarction Is this a current diagnosis for this admission?: Yes Plan: Patient does not admit to chest pain specifically. Will observe the patient continues telemetry unit, obtain serial cardiac enzymes, repeat EKG, and obtain lipid panel in the a.m. (2) Indigestion Is this a current diagnosis for this admission?: Yes Plan: Will start the patient on PPI therapy. (3) Diabetes mellitus type 2 in obese Is this a current diagnosis for this admission?: Yes Plan: Will resume the patient's home medications and add before meals and at bedtime coverage (4) Coronary artery disease Qualifiers: Coronary Disease-Associated Artery/Lesion type: [place] artery [place] vs. transplanted heart: [place] heart Associated angina: angina presence unspecified Qualified Code(s): I25.10 - Atherosclerotic heart disease of [place] coronary artery without angina pectoris Is this a current diagnosis for this admission?: Yes Plan: Resume the patient's home medications once reconciled (5) Hypertension Qualifiers: Hypertension type: essential hypertension Qualified Code(s): I10 - Essential (primary) hypertension Is this a current diagnosis for this admission?: Yes Plan: We will resume the patient's home medications (6) Obstructive sleep apnea Is this a current diagnosis for this admission?: Yes Plan: CPAP at night - Time Time Spent: 50 to 70 Minutes Medications reviewed and adjusted accordingly: Yes Anticipated discharge: Home Within: within 24 hours Disposition: The patient is a full code. Pending patient's symptomatology and diagnostic findings will reevaluate in the a.m. will observe the patient to continuous telemetry as the patient's expected length stay will not surpass 2 midnights.
[2017-09-02] MEDS: MORPHINE SULFATE 10 MG/ML INJ IV SCH ×3 (17:34→23:59)
[2017-09-02] MEDS ORDERED: PANTOPRAZOLE SODIUM 40 MG VIAL IV ONE (17:45)
[2017-09-02] MEDS ORDERED: ACETAMINOPHEN 325 MG TABLET PO PRN (18:00)
[2017-09-02] MEDS: METOPROLOL TARTRATE 25 MG TABLET PO SCH (18:58)
[2017-09-02] MEDS: GABAPENTIN 300 MG CAPSULE PO SCH (18:59)
--- NOTE | 2017-09-02 21:49 | EKG REPORT ---
SEVERITY:- ABNORMAL ECG - SINUS RHYTHM PROBABLE LVH WITH SECONDARY REPOL ABNRM : Confirmed by: Emilia Ramsay MD 02-Sep-2017 21:48:43
[2017-09-02] MEDS ORDERED: HEPARIN SOD (PORCINE) 5,000 UNIT/ML 1 ML SYRINGE SUBCUT SCH (22:00)
[2017-09-02] MEDS ORDERED: NITROGLYCERIN 2% OINTMENT 1 GM PACKET ONE (23:21)
[2017-09-02] MEDS: ATORVASTATIN CALCIUM 40 MG TABLET PO SCH (23:29)
[2017-09-02] MEDS ORDERED: NITROGLYCERIN 2% OINTMENT 1 GM PACKET TP ONE (23:30)
[2017-09-02] MEDS ORDERED: ISOSORBIDE DINITRATE 5 MG TABLET ONE (23:39)
[2017-09-02] MEDS ORDERED: ENOXAPARIN SODIUM INJ 120 MG/0.8 ML DISP.SYRIN SUBCUT ONE (23:45)
[2017-09-02] MEDS: ISOSORBIDE DINITRATE 5 MG TABLET PO SCH (23:48)
[2017-09-03] MEDS ORDERED: HYDROCODONE/ACETAMINOPHEN 5-325 MG TABLET ONE (01:13)
[2017-09-03] MEDS ORDERED: ENOXAPARIN SODIUM INJ 120 MG/0.8 ML DISP.SYRIN SUBCUT ONE (01:30)
[2017-09-03 07:36] LABS: ANION GAP 11 (5-19); BLOOD UREA NITROGEN 29 mg/dL (7-20); CALCIUM 9.3 mg/dL (8.4-10.2); CARBON DIOXIDE 23 mmol/L (22-30); CHLORIDE 110 mmol/L (98-107); GLUCOSE 201 mg/dL (75-110); POTASSIUM 5.1 mmol/L (3.6-5.0); SODIUM 143.9 mmol/L (137-145)
--- NOTE | 2017-09-03 08:22 | EKG REPORT ---
SEVERITY:- ABNORMAL ECG - SINUS RHYTHM BORDERLINE IVCD WITH LAD ABNORMAL T, CONSIDER ISCHEMIA, LATERAL LEADS : Confirmed by: Emilia Ramsay MD 03-Sep-2017 08:22:33
[2017-09-03] MEDS: BENAZEPRIL HCL 20 MG TABLET PO SCH (09:24)
[2017-09-03] MEDS: METOPROLOL TARTRATE 25 MG TABLET PO SCH ×2 (09:25→18:27)
[2017-09-03] MEDS: AMLODIPINE BESYLATE 10 MG TABLET PO SCH (09:25)
[2017-09-03] MEDS: GABAPENTIN 300 MG CAPSULE PO SCH ×2 (09:25→18:26)
[2017-09-03] MEDS: PANTOPRAZOLE SODIUM 40 MG VIAL IV SCH ×2 (09:26→22:47)
[2017-09-03] MEDS: ASPIRIN 81 MG TABLET, CHEWABLE PO SCH (09:26)
[2017-09-03] MEDS: ENOXAPARIN SODIUM INJ 120 MG/0.8 ML DISP.SYRIN SUBCUT SCH ×2 (09:29→22:47)
[2017-09-03] MEDS: SITAGLIPTIN PHOSPHATE 50 MG TABLET PO SCH (09:34)
[2017-09-03] MEDS ORDERED: PAROXETINE HCL 20 MG TABLET PO SCH ×2 (10:00→22:00)
[2017-09-03] MEDS: ISOSORBIDE DINITRATE 5 MG TABLET PO SCH ×2 (11:00→18:26)
[2017-09-03] MEDS: HYDROCODONE/ACETAMINOPHEN 5-325 MG TABLET PO PRN (13:54)
--- NOTE | 2017-09-03 18:20 | Progress Note ---
Provider Note Provider Note: Given EKG changes and elevated troponin, case discussed with patient's primary baker helper, Dr. Contreras - Likely will need diagnostic cardiac cath. Patient has a history of CABG >20 years ago - No chest pain today, however notes indigestion -Will repeat trops with 7/16 AM labs - Unfortunately [facility] cath team will not be at [facility] on Monday, 09/04 - Discussed with patient and her family two options: 1. Stay at [facility] and have cardiac cath on Tuesday 09/05 OR 2. Transfer to [facility] - They will discuss tonight and let hospitalist known on Monday,
[2017-09-03] MEDS ORDERED: DEXTROSE 40% GEL 15 GM TUBE PO PRN ×2 (18:38)
[2017-09-03] MEDS ORDERED: DEXTROSE 50%-WATER 25 GM/50 ML DISP.SYRIN IV PRN ×2 (18:38)
[2017-09-03] MEDS ORDERED: GLUCAGON,HUMAN RECOMB 1 MG INJ IM PRN (18:38)
[2017-09-03] MEDS: ATORVASTATIN CALCIUM 40 MG TABLET PO SCH (22:46)
[2017-09-03] MEDS ORDERED: DIPHENHYDRAMINE HCL 25 MG CAPSULE ONE (23:11)
[2017-09-03] MEDS ORDERED: DIPHENHYDRAMINE HCL 25 MG CAPSULE PO PRN (23:12)
[2017-09-04 04:32] LABS: HEMATOCRIT 32.2 % (36.0-47.0); HEMOGLOBIN 10.8 g/dL (12.0-15.5); MEAN CORPUSCULAR HEMOGLOBIN 27.7 pg (27.0-33.4); MEAN CORPUSCULAR HGB CONC 33.5 g/dL (32.0-36.0); MEAN CORPUSCULAR VOLUME 83 fl (80-97); PLATELET COUNT 235 10^3/uL (150-450); RED CELL DISTRIBUTION WIDTH 15.7 % (11.5-14.0); WHITE BLOOD COUNT 8.6 10^3/uL (4.0-10.5)
[2017-09-04 05:08] LABS: ANION GAP 12 (5-19); BLOOD UREA NITROGEN 26 mg/dL (7-20); CALCIUM 9.6 mg/dL (8.4-10.2); CARBON DIOXIDE 25 mmol/L (22-30); CHLORIDE 108 mmol/L (98-107); GLUCOSE 140 mg/dL (75-110); POTASSIUM 4.9 mmol/L (3.6-5.0); SODIUM 144.9 mmol/L (137-145)
[2017-09-04] MEDS ORDERED: LORAZEPAM 0.5 MG TABLET PO PRN (08:59)
[2017-09-04] MEDS ORDERED: NITROGLYCERIN 0.4 MG/TAB 25 TAB/BOTTLE ONE (09:09)
[2017-09-04] MEDS: METOPROLOL TARTRATE 25 MG TABLET PO SCH (09:38)
[2017-09-04] MEDS: GABAPENTIN 300 MG CAPSULE PO SCH (09:39)
[2017-09-04] MEDS: SITAGLIPTIN PHOSPHATE 50 MG TABLET PO SCH (09:40)
[2017-09-04] MEDS: AMLODIPINE BESYLATE 10 MG TABLET PO SCH (09:41)
[2017-09-04] MEDS: BENAZEPRIL HCL 20 MG TABLET PO SCH (09:41)
[2017-09-04] MEDS: ASPIRIN 81 MG TABLET, CHEWABLE PO SCH (09:42)
[2017-09-04] MEDS: HYDROCODONE/ACETAMINOPHEN 5-325 MG TABLET PO PRN (09:42)
[2017-09-04] MEDS: PANTOPRAZOLE SODIUM 40 MG VIAL IV SCH (09:43)
--- NOTE | 2017-09-04 11:17 | PDOC TRANSFER SUMMARY ---
General Admission Date/PCP: 09/02/17 16:15 NATHAN SHERWOOD MD Resuscitation Status: Full Code - Transfer Diagnosis (1) NSTEMI (non-ST elevated myocardial infarction) Is this a current diagnosis for this admission?: Yes Diagnosis Summary: Patient was admitted with atypical chest pain, elevated troponins, peaked at 0.170 and now trending down. EKG demonstrated inverted T waves to the lateral leads which is a change from her previous EKG dated March 2017. She continues to have atypical chest discomfort symptoms that respond to sublingual nitroglycerin. The previous hospitalist discussed with her outpatient instrument mechanic, Dr. Contreras, appropriateness for cardiac catheterization at [facility] versus transfer to [facility] for interventional cardiology services. These options were discussed with the patient and family member who have elected to have the patient transferred to [facility] for further care. (2) Chest pain Is this a current diagnosis for this admission?: Yes Diagnosis Summary: Atypical chest pain with multiple risk factors. Pain is described as pulsation/aching neck discomfort and right ear pain. She reports that the symptoms are similar to previously when she required CABG. Symptoms resolved with sublingual nitroglycerin tab. She denies associated symptoms of dizziness, headache, diaphoresis, dyspnea, nausea. Pain does not radiate. Of note, she does have chronic left shoulder pain that is not associated with her current admission. (3) Diabetes mellitus Is this a current diagnosis for this admission?: Yes Diagnosis Summary: The patient's home medication, Januvia, was continued. Accu-Cheks were monitored and Humalog for sliding scale coverage was provided. (4) Anxiety and depression Is this a current diagnosis for this admission?: Yes Diagnosis Summary: The patient's home medication, Paxil, was continued. She is provided prn p.o. Ativan for increased situational anxiety while admitted. (5) Hypertension Is this a current diagnosis for this admission?: Yes Diagnosis Summary: The patient's home medication regimen is continued; amlodipine, benazepril, isosorbide, and metoprolol. She is relatively normotensive today with a blood pressure of 146/41. (6) GERD (gastroesophageal reflux disease) Is this a current diagnosis for this admission?: Yes Diagnosis Summary: Symptoms are uncontrolled as outpatient. She was placed on twice daily IV Protonix while admitted. (7) Coronary artery disease Is this a current diagnosis for this admission?: Yes Diagnosis Summary: Remote history of CABG 4 and angioplasties. The patient's daily aspirin and atorvastatin were continued. (8) Obesity Is this a current diagnosis for this admission?: Yes - Transfer Medications Home Medications: Acetaminophen [Tylenol Arthritis] 650 mg PO TID 09/02/17 Aspirin 81 mg PO DAILY 09/02/17 Atorvastatin Calcium [Lipitor 40 mg Tablet] 40 mg PO QHS 09/02/17 Diphenhydramine HCl 25 mg PO QHS 09/02/17 Gabapentin 300 mg PO BID 09/02/17 Gemfibrozil [Lopid 600 mg Tablet] 600 mg PO BID 09/02/17 Glyburide/Metformin HCl [Glucovance 5-500 mg Tablet] 2 each PO Q12 09/02/17 Hydrocodone/Acetaminophen [[place] 5-325 mg Tablet] 1 tab PO Q6HP PRN 09/02/17 Isosorbide Dinitrate 5 mg PO BID 09/02/17 Meloxicam 15 mg PO DAILY 09/02/17 Metformin HCl 1,000 mg PO QHS 09/02/17 Metoprolol Tartrate 25 mg PO BID 09/02/17 Paroxetine HCl [Paxil 20 mg Tablet] 20 mg PO QHS 09/02/17 Sitagliptin Phosphate [Januvia 50 mg Tablet] 100 mg PO DAILY 09/02/17 Valsartan/Hydrochlorothiazide [Diovan Hct 320-12.5 mg Tab] 1 each PO DAILY 09/02 Insulin Glargine,Hum.rec.anlog [Lantus Insulin 100 Unit/1 ml 10 ml] 60 unit SQ DAILY 09/03/17 Transfer Medications: Current Medications Acetaminophen (Tylenol 325 Mg Tablet) 650 mg PO TIDP PRN PRN Reason: PAIN Stop: 10/02/17 17:59 Hydrocodone Bitart/Acetaminophen ([place] 5-325 Mg Tablet) 1 tab PO Q6HP PRN PRN Reason: PAIN Stop: 09/10/17 01:25 Last Admin: 09/04/17 09:42 Dose: 1 tab Amlodipine Besylate (Norvasc 10 Mg Tablet) 10 mg PO DAILY DELGADO Stop: 10/03/17 09:59 Last Admin: 09/04/17 09:41 Dose: 10 mg Aspirin (Aspirin 81 Mg Chewable Tablet) 81 mg PO DAILY DELGADO Stop: 10/03/17 09:59 Last Admin: 09/04/17 09:42 Dose: 81 mg Atorvastatin Calcium (Lipitor 40 Mg Tablet) 40 mg PO QHS DELGADO Stop: 10/02/17 21:59 Last Admin: 09/03/17 22:46 Dose: 40 mg Benazepril HCl (Lotensin 20 Mg Tablet) 40 mg PO DAILY DELGADO Stop: 10/03/17 09:59 Last Admin: 09/04/17 09:41 Dose: 40 mg Dextrose (Dextrose Inj 50% Syringe (25 Gm/50 Ml)) 12.5 gm IV PRN PRN; Protocol PRN Reason: FOR BG 50-69 IN ALERT PATIENT Stop: 10/03/17 18:37 Dextrose (Dextrose Inj 50% Syringe (25 Gm/50 Ml)) 25 gm IV PRN PRN; Protocol PRN Reason: PER PROTOCOL Stop: 10/03/17 18:37 Diphenhydramine HCl (Benadryl 25 Mg Capsule) 25 mg PO HSP PRN PRN Reason: SLEEP OR INSOMNIA Stop: 10/03/17 23:11 Last Admin: 09/03/17 23:18 Dose: 25 mg Enoxaparin Sodium (Lovenox Inj 120 Mg/0.8 Ml Disp.Syrin) 105 mg SUBCUT Q12 DELGADO Stop: 10/03/17 09:59 Last Admin: 09/03/17 22:47 Dose: 105 mg Gabapentin (Neurontin 300 Mg Capsule) 300 mg PO BID DELGADO Stop: 10/02/17 17:59 Last Admin: 09/04/17 09:39 Dose: 300 mg Glucagon (Glucagen Inj 1 Mg Vial) 1 mg IM PRN PRN; Protocol PRN Reason: Evaluate for BG < 70 Stop: 10/03/17 18:37 Glucose (Glutose 40% Gel 15 Gm Tube) 15 gm PO PRN PRN; Protocol PRN Reason: FOR BG 50-69 IN ALERT PATIENT Stop: 10/03/17 18:37 Glucose (Glutose 40% Gel 15 Gm Tube) 30 gm PO PRN PRN; Protocol PRN Reason: FOR BG < 50 IN ALERT PATIENT Stop: 10/03/17 18:37 Isosorbide Dinitrate (Isordil Titradose 5 Mg Tablet) 5 mg PO BID [facility] Stop: 10/02/17 17:59 Last Admin: 09/03/17 18:26 Dose: 5 mg Lorazepam (Ativan 0.5 Mg Tablet) 0.25 mg PO Q8HP PRN PRN Reason: ANXIETY/AGITATION Stop: 09/11/17 08:58 Metoprolol Tartrate (Lopressor 25 Mg Tablet) 25 mg PO BID DELGADO Stop: 10/02/17 17:59 Last Admin: 09/04/17 09:38 Dose: 25 mg Pantoprazole Sodium (Protonix Iv Inj 40 Mg Vial) 40 mg IV Q12 DELGADO Stop: 09/06/17 09:59 Last Admin: 09/04/17 09:43 Dose: 40 mg Paroxetine HCl (Paxil 20 Mg Tablet) 20 mg PO QHS DELGADO Stop: 10/03/17 21:59 Last Admin: 09/03/17 22:46 Dose: 20 mg Sitagliptin Phosphate (Januvia 50 Mg Tablet) 100 mg PO DAILY DELGADO Stop: 10/03/17 09:59 Last Admin: 09/04/17 09:40 Dose: 100 mg Sodium Chloride (Saline Flush 2.5 Ml Monoject Prefil Syrin) 2.5 ml IV Q8 DELGADO Stop: 10/02/17 21:59 Last Admin: 09/04/17 06:39 Dose: Not Given - Allergies Allergies/Adverse Reactions: sulfamethoxazole [From Bactrim] Allergy (Verified 09/02/17 12:59) trimethoprim [From Bactrim] Allergy (Verified 09/02/17 12:59) Hospital Course Hospital Course: The patient was admitted with atypical chest pain and multiple risk factors including remote CABG 4 and angioplasty (early ), morbid obesity, hypertension, hyperlipidemia, diabetes mellitus. EKG demonstrates normal sinus rhythm with inverted T waves to the lateral leads ; changed from previous EKG dated 04/09. No ST elevation or depression. Initial troponin elevated to 0.114, peaked at 0.170, now trending down. Troponin this morning 0.118. Chest x-ray is benign. The patient continues to have atypical chest discomfort described as aching sensation to her neck and right ear pain (patient states symptoms are similar to previous event which led to her CABG); improved with sublingual nitroglycerin tab. The previous hospitalist spoke with the patient's outpatient instrument mechanic, Dr. Contreras, regarding appropriateness for cardiac catheterization at [facility]. The earliest that cardiac cath services would be available at our facility would be tomorrow, 09/05/17. Alternatively, the patient could be transferred to [facility] and undergo cardiac catheterization there. These options were discussed with the patient and family members who elected to have the patient transferred to [facility] today. We did discuss the possibility that a late transfer and/or additional cardiac catheterizations being added onto the schedule at [facility] may mean that the patient would be transferred today but not have cardiac catheterizations done until a later date. The patient and family members confirm understanding of this possibility and continue request that transfer be arranged. I spoke with Dr. Grimes at [facility] today who has graciously agreed to accept this patient. At time of dictation, the patient is in stable condition and chest pain-free ( following administration of nitroglycerin SL this morning). Physical Exam Vital Signs: Temp Pulse Resp BP Pulse Ox 97.9 F 85 20 146/41 H 94 09/04/17 07:12 09/04/17 07:12 09/04/17 07:12 09/04/17 07:12 09/04/17 07:12 Intake & Output 09/03/17 09/04/17 09/05/17 06:59 06:59 06:59 Intake Total 800 1720 Balance 800 1720 Weight 104.4 kg 108.6 kg General appearance: PRESENT: no acute distress, cooperative, morbidly obese, well-developed, well-nourished Head exam: PRESENT: atraumatic, normocephalic Eye exam: PRESENT: conjunctiva pink, EOMI, PERRLA. ABSENT: scleral icterus Ear exam: PRESENT: normal external ear exam Mouth exam: PRESENT: moist, tongue midline Neck exam: ABSENT: carotid bruit, JVD, lymphadenopathy, thyromegaly Respiratory exam: PRESENT: clear to auscultation evy, symmetrical, unlabored. ABSENT: rales, rhonchi, wheezes Cardiovascular exam: PRESENT: RRR. ABSENT: diastolic murmur, rubs, systolic murmur Pulses: PRESENT: normal dorsalis pedis pul Vascular exam: PRESENT: normal capillary refill GI/Abdominal exam: PRESENT: normal bowel sounds, soft. ABSENT: distended, guarding, mass, organolmegaly, rebound, tenderness Rectal exam: PRESENT: deferred Extremities exam: PRESENT: full ROM. ABSENT: calf tenderness, clubbing, pedal edema Neurological exam: PRESENT: alert, awake, oriented to person, oriented to place , oriented to time, oriented to situation, CN II-XII grossly intact. ABSENT: motor sensory deficit Psychiatric exam: PRESENT: anxious, appropriate affect, normal mood. ABSENT: homicidal ideation, suicidal ideation Skin exam: PRESENT: dry, intact, warm. ABSENT: cyanosis, rash Results Laboratory Results: 09/04/17 03:55 09/04/17 03:55 09/04/17 09/04/17 03:55 03:55 WBC 8.6 RBC 3.90 Hgb 10.8 L Hct 32.2 L MCV 83 MCH 27.7 MCHC 33.5 RDW 15.7 H Plt Count 235 Sodium 144.9 Potassium 4.9 Chloride 108 H Carbon Dioxide 25 Anion Gap 12 BUN 26 H Creatinine 1.03 Est GFR ( Amer) > 60 Est GFR (Non-Af Amer) 52 L Glucose 140 H Calcium 9.6 09/02/17 09/04/17 21:50 03:55 Troponin I 0.170 0.118 Impressions: Chest X-Ray 09/02/17 11:29 IMPRESSION: NO ACUTE RADIOGRAPHIC FINDING IN THE CHEST. Chest/Abdomen CTA 09/02/17 13:05 IMPRESSION: No emboli visualized in the main pulmonary arteries or the segmental branches. Plan Discharge Plan: Transfer to [facility] under the care of Dr. Meneses for Interventional Cardiology/[facility] Catheterization services. Time Spent: Greater than 30 Minutes
[2017-09-04] MEDS: ISOSORBIDE DINITRATE 5 MG TABLET PO SCH (12:12)
[2017-09-04] MEDS: ENOXAPARIN SODIUM INJ 120 MG/0.8 ML DISP.SYRIN SUBCUT SCH (12:13)
[2017-09-04 12:14] VITALS: BP 152/53
== END 2017-09-04 13:11 | disposition short-term general hospital (02) ==
LOC: ER 11:27 → EH 16:15 → INTOOBSV 16:15 → OBSVTOIN 16:15 → 4N 22:33
PROVIDERS: ADMIT Student in an Organized Health Care Education/Training Program; ATTEND Student in an Organized Health Care Education/Training Program
DX: I21.4 Non-ST elevation (NSTEMI) myocardial infarction (principal); G89.29 Other chronic pain; M25.512 Pain in left shoulder; E11.9 Type 2 diabetes mellitus without complications; F41.9 Anxiety disorder, unspecified; F32.9 Major depressive disorder, single episode, unspecified; I10 Essential (primary) hypertension; K21.9 Gastro-esophageal reflux disease without esophagitis; I25.10 Atherosclerotic heart disease of native coronary artery without angina pectoris; E66.01 Morbid (severe) obesity due to excess calories; H92.01 Otalgia, right ear; I25.2 Old myocardial infarction; M19.90 Unspecified osteoarthritis, unspecified site; E78.5 Hyperlipidemia, unspecified; R39.15 Urgency of urination; R35.0 Frequency of micturition; K52.9 Noninfective gastroenteritis and colitis, unspecified; G47.33 Obstructive sleep apnea (adult) (pediatric); Z95.1 Presence of aortocoronary bypass graft; Z68.41 Body mass index [BMI] 40.0-44.9, adult; Z98.890 Other specified postprocedural states; Z79.899 Other long term (current) drug therapy; Z87.891 Personal history of nicotine dependence; Z82.49 Family history of ischemic heart disease and other diseases of the circulatory system; Z79.84 Long term (current) use of oral hypoglycemic drugs; Z79.82 Long term (current) use of aspirin
CPT/HCPCS: 93005 ×2; 96376; 99285; 96361; 96374; 36415 ×3; 82553; 82962 ×2; 82550; 85025; 85027; 80048 ×2; 80053; 84484 ×2; 71045; 71275; 93010 ×2; 97162; G0378 ×4; A9270 ×23; J1644; J1650 ×2; J2270; C9113 ×3; J3490 ×2; J7040; G8978; G8979; S0119; S0164

== ENCOUNTER 2018-01-24 12:51 | Emergency (ER) | payer MEDICARE, OTHER ==
--- NOTE | 2018-01-24 14:00 | ER Document Report ---
ED Fall - General Chief Complaint: Fall Stated Complaint: FALL/FACIAL AND ARM PAIN Time Seen by Provider: 01/24/18 13:15 Information source: Patient Notes: Patient states that she plays computer games until late in the night. Patient states that around 430 this morning she kept dozing off of the computer and then eventually dozed off and started to fall out of her chair. Patient states that as she was falling she woke up and brought her hand up to protect her face that she fell. Patient states that she did hit her head on a chest although did have her hand covering her head at the time. Patient complains of left shoulder low back and left knee pain. Patient states that around 1030 this morning she noticed that she had some blurred vision to the lateral aspect of her left eye but that this was at a slant. Patient denies any significant eye pain. Patient denies wearing contact lenses. Patient denies any headache pain. TRAVEL OUTSIDE OF THE [place] IN LAST 30 DAYS: No - HPI Occurred: This morning Where: Home Context: Fell from sitting Associated symptoms: None Location of injury/pain: Back, Upper extremity, Lower extremity Quality of pain: Achy Pain Level: 3 - Related data Allergies/Adverse Reactions: sulfamethoxazole [From Bactrim] Allergy (Verified 01/24/18 12:52) trimethoprim [From Bactrim] Allergy (Verified 01/24/18 12:52) Past Medical History - General Information source: Patient - Social History Smoking Status: Never Smoker Frequency of alcohol use: None Drug Abuse: None Lives with: Family Family History: CAD, Hypertension - Past Medical History Cardiac Medical History: Reports: Hx Coronary Artery Disease, Hx Hypercholesterolemia, Hx Hypertension Denies: Hx Congestive Heart Failure, Hx Peripheral Vascular Disease, Hx Pulmonary Embolism Pulmonary Medical History: Reports: Hx Sleep Apnea Endocrine Medical History: Reports: Hx Diabetes Mellitus Type 2 Renal/ Medical History: Denies: Hx Peritoneal Dialysis GI Medical History: Reports: Hx Gastroesophageal Reflux Disease Musculoskeletal Medical History: Reports Hx Arthritis Psychiatric Medical History: Denies: Hx Depression Past Surgical History: Reports: Hx Cardiac Surgery - bypass x4, Hx Coronary Artery Bypass Graft - 1997, Hx Orthopedic Surgery - Left shoulder 2 weeks ago, Other - Ablasion after SVT - Immunizations Hx Diphtheria, Pertussis, Tetanus Vaccination: - unknown Review of Systems - Review of Systems Constitutional: No symptoms reported. denies: Fever EENT: Blurred vision. denies: Eye pain Cardiovascular: No symptoms reported. denies: Dizziness, Lightheaded Respiratory: No symptoms reported. denies: Cough, Hemoptysis Gastrointestinal: No symptoms reported. denies: Abdominal pain, Nausea, Vomiting Genitourinary: No symptoms reported Female Genitourinary: No symptoms reported Musculoskeletal: Back pain, Joint pain - Left shoulder, left knee Skin: No symptoms reported Hematologic/Lymphatic: No symptoms reported Neurological/Psychological: No symptoms reported. denies: Confusion, Lost consciousness, Headaches Physical Exam - Vital signs Vitals: Temp Pulse Resp BP Pulse Ox 98.6 F 68 18 156/61 H 97 01/24/18 13:00 01/24/18 13:00 01/24/18 13:00 01/24/18 13:00 01/24/18 13:00 - General General appearance: Appears well, Alert In distress: None - HEENT Head: Normocephalic, Abrasions - lower chin with faint abrasion. No: Guerrero's sign, Ecchymosis, [place]'s eyes Eyes: Normal Conjunctiva: Normal Cornea: Other - surgical changes-cataract Extraocular movements intact: Yes Eyelashes: Normal Pupils: PERRL Nasal: Normal Mouth/Lips: Normal Mucous membranes: Normal Pharynx: Normal Neck: Normal, Supple. No: Lymphadenopathy Notes: No midline tenderness step-off or deformity - Respiratory Respiratory status: No respiratory distress Chest status: Nontender Breath sounds: Normal. No: Rales, Rhonchi, Stridor, Wheezing Chest palpation: Normal - Cardiovascular Rhythm: Regular Heart sounds: S1 appreciated, S2 appreciated Murmur: No - Abdominal Inspection: Morbidly Obese Distension: No distension Tenderness: Nontender - Back Back: Vertebra tenderness - Lower lumbar tenderness, no step-off or deformity. No: Deformity/step-off, CVA tenderness - Extremities General upper extremity: Tender - Tenderness to CMC joint of left thumb, Normal ROM General lower extremity: Tender - Tenderness over left knee with small overlying ecchymosis, Normal ROM Shoulder: Tender - Left shoulder joint tenderness to anterior aspect of humeral head with linear scar from previous surgery, Limited ROM - Secondary to tenderness. No: Deformity, Dislocation, Ecchymosis, Instability Arm: Normal, Nontender Elbow: Normal, Nontender Forearm: Normal, Nontender Wrist: Normal, Nontender Hand: Tender - Left thumb CMC joint tenderness. No: Deformity, Dislocation, Ecchymosis, Swelling, Tendon deficit Hip: Normal, Nontender Thigh: Normal, Nontender Knee: Tender - Left knee joint tenderness to anterior aspect overlying patella with a small ecchymosis, Ecchymosis, Pain with ROM. No: Joint effusion, Laceration, Laxity with valgus stress, Laxity with varus stress - Neurological Neuro grossly intact: Yes Cognition: Normal [place] Coma Scale Eye Opening: Spontaneous [place] Coma Scale Verbal: Oriented Michele Coma Scale Motor: Obeys Commands [place] Coma Scale Total: 15 - Psychological Associated symptoms: Normal affect, Normal mood - Skin Skin Temperature: Warm Skin Moisture: Dry Skin Color: Normal Course - Re-evaluation Re-evalutation: 01/24/18 13:[address] Wright regarding patient presentation, and patient is concerned about blurred vision to the lateral field of vision to the left eye only. Patient does state that the area of blurred vision seems to be slanted at an angle somewhat. Dr. Wright to bedside for examination, field of vision testing performed, suspects that patient has a likely ocular muscle strain. Dr. Wright vies patient to perform field of vision exercise test and that he will reevaluate. Dr Wright declines assuming care of patient, as he feels pt is appropriate for super track setting. 01/24/18 13:[address] Contreras regarding patient presentation and concern about blurred vision to the left eye. Does not feel that patient needs a stroke evaluation. States that he will evaluate patient at bedside with ultrasound machine to evaluate for possible retinal detachment. 01/24/18 14:51 Patient reevaluated after performing field of vision exercises. Patient denies any slanted appearance to an object that is held in front of the left eye although reports slanting whenever object is held out laterally at 90 degrees. Discussed this finding with dr Wright who states that patient should perform another 10 rounds of the eye muscle exercises that he instructed patient on. 01/24/18 15:11 Dr. Contreras to bedside with ultrasound machine. No concern for retinal detachment or or obvious ocular hemorrhage. Suspects likely traumatic iritis. Recommends outpatient follow-up with her air twister winder for recheck. - Vital Signs Vital signs: Temp Pulse Resp BP Pulse Ox 98.4 F 67 20 171/63 H 96 01/24/18 15:33 01/24/18 15:33 01/24/18 15:33 01/24/18 15:33 01/24/18 15:33 - Diagnostic Test Radiology reviewed: Image reviewed, Reports reviewed Discharge - Discharge Clinical Impression: Traumatic iritis Fall Qualifiers: Encounter type: initial encounter Qualified Code(s): W19.XXXA - Unspecified fall, initial encounter Head injury Qualifiers: Encounter type: initial encounter Qualified Code(s): S09.90XA - Unspecified injury of head, initial encounter Low back pain Qualifiers: Chronicity: unspecified Back pain laterality: unspecified Sciatica presence: without sciatica Qualified Code(s): M54.5 - Low back pain Left knee sprain Qualifiers: Encounter type: initial encounter Involved ligament of knee: unspecified ligament Qualified Code(s): S83.92XA - Sprain of unspecified site of left knee, initial encounter Sprain of left shoulder Qualifiers: Encounter type: initial encounter Shoulder sprain type: unspecified sprain Qualified Code(s): S43.402A - Unspecified sprain of left shoulder joint, initial encounter Condition: Stable Disposition: HOME, SELF-CARE Instructions: Christopher Wrap ([facility]), Head Injury Precautions ([facility]), Ice & Elevation ( [facility]), Shoulder Injury ([facility]), Sprained Knee ([facility]) Additional Instructions: Return immediately for any new or worsening symptoms Followup with your primary care provider, call tomorrow to make a followup appointment Follow-up with your air twister winder for repeat examination, call today to make a follow-up appointment Follow-up with your orthopedic surgeon for a recheck, call today to make an appointment You can take your pain medication that you have at home as prescribed Referrals: NATHAN SHERWOOD MD [Primary Care Provider] - Follow up as needed
--- NOTE | 2018-01-24 14:24 | RADIOLOGY REPORT (SQ) ---
EXAM DESCRIPTION: CT HEAD WITHOUT COMPLETED DATE/TIME: 01/24/2018 2:12 pm REASON FOR STUDY: fall fall injury pain, hit the left side of her head, headache COMPARISON: None. TECHNIQUE: Axial images acquired through the brain without intravenous contrast. Images reviewed wi th bone, brain and subdural windows. Additional sagittal and coronal reconstructions were generated. Images stored on PACS. All CT scanners at this facility use dose modulation, iterative reconstruction, and/or weight based d osing when appropriate to reduce radiation dose to as low as reasonably achievable (ALARA). [facility]: Dose Right [facility]: CareDose [facility]: Dose Right [facility]: Teradose 4D [facility]: Attensity RADIATION DOSE: CT Rad equipment meets quality standard of care and radiation dose reduction techniq ues were employed. CTDIvol: 53.2 mGy. DLP: 1017 mGy-cm. mGy. LIMITATIONS: None. FINDINGS: VENTRICLES: Normal size and contour. CEREBRUM: No masses. No hemorrhage. No midline shift. No evidence for acute infarction. Normal gra y/white matter differentiation. No areas of low density in the white matter. CEREBELLUM: No masses. No hemorrhage. No alteration of density. No evidence for acute infarction. EXTRAAXIAL SPACES: No fluid collections. No masses. ORBITS AND GLOBE: No intra- or extraconal masses. Normal contour of globe without masses. CALVARIUM: No fracture. PARANASAL SINUSES: No fluid or mucosal thickening. SOFT TISSUES: No mass or hematoma. OTHER: No other significant finding. IMPRESSION: NORMAL BRAIN CT WITHOUT CONTRAST. EVIDENCE OF ACUTE STROKE: NO. COMMENT: Quality ID # [id number]: Final reports with documentation of one or more dose reduction techniques (e.g., Automated exposure control, adjustment of the mA and/or kV according to patient size, use of iterative reconstruction technique) TECHNICAL DOCUMENTATION: JOB ID: [id number] [employer]- All Rights Reserved Reading location - IP/workstation name: [email or web address]
--- NOTE | 2018-01-24 14:46 | RADIOLOGY REPORT (SQ) ---
EXAM DESCRIPTION: SHOULDER LEFT 2 OR MORE VIEWS COMPLETED DATE/TIME: 01/24/2018 2:35 pm REASON FOR STUDY: fall COMPARISON: None. NUMBER OF VIEWS: Two views. TECHNIQUE: Internal and external rotation images acquired of the left shoulder. LIMITATIONS: None. FINDINGS: MINERALIZATION: Normal. BONES: Shoulder replacement. No acute fracture. JOINTS: No dislocation. VISUALIZED LUNGS AND RIBS: No pneumothorax. No rib fracture. SOFT TISSUES: No radiopaque foreign body. OTHER: No other significant finding. IMPRESSION: No acute fracture or dislocation. TECHNICAL DOCUMENTATION: JOB ID: [id number] [employer]- All Rights Reserved Reading location - IP/workstation name: [email or web address]
--- NOTE | 2018-01-24 14:47 | RADIOLOGY REPORT (SQ) ---
EXAM DESCRIPTION: KNEE LEFT 4 VIEW COMPLETED DATE/TIME: 01/24/2018 2:35 pm REASON FOR STUDY: fall COMPARISON: None. NUMBER OF VIEWS: Four views. TECHNIQUE: AP, lateral, and both oblique radiographic images acquired of the left knee. LIMITATIONS: None. FINDINGS: MINERALIZATION: Normal. BONES: No acute fracture. Degenerative changes most prominent medial compartment. Possible posterio r loose bodies. JOINT: No effusion. SOFT TISSUES: No soft tissue swelling. No radio-opaque foreign body. OTHER: No other significant finding. IMPRESSION: No acute fracture. Degenerative changes with possible loose bodies. TECHNICAL DOCUMENTATION: JOB ID: [id number] [employer]- All Rights Reserved Reading location - IP/workstation name: [email or web address]
--- NOTE | 2018-01-24 14:48 | RADIOLOGY REPORT (SQ) ---
EXAM DESCRIPTION: L SPINE WHOLE COMPLETED DATE/TIME: 01/24/2018 2:35 pm REASON FOR STUDY: fall COMPARISON: None. NUMBER OF VIEWS: Five views including obliques. TECHNIQUE: AP, lateral, oblique, and sacral radiographic images acquired of the lumbar spine. LIMITATIONS: None. FINDINGS: MINERALIZATION: Normal. SEGMENTATION: Normal. No transitional anatomy. ALIGNMENT: Normal. VERTEBRAE: Maintained height. No fracture or worrisome bone lesion. DISCS: Marked degenerative disc disease L1-2, L2-3, L5-S1. POSTERIOR ELEMENTS: Pedicles and facets are intact. No pars defect or posterior arch defects. HARDWARE: None in the spine. PARASPINAL SOFT TISSUES: 8 ectatic calcified aorta. PELVIS: Intact as visualized. No fractures or worrisome bone lesions. SI joints intact. OTHER: No other significant finding. IMPRESSION: Degenerative disc disease. TECHNICAL DOCUMENTATION: JOB ID: [id number] [employer]- All Rights Reserved Reading location - IP/workstation name: [email or web address]
[2018-01-24 15:34] VITALS: BP 171/63
== END 2018-01-24 15:43 | disposition home or self-care (01) ==
LOC: ER 12:51
DX: S83.92XA Sprain of unspecified site of left knee, initial encounter (principal); S43.402A Unspecified sprain of left shoulder joint, initial encounter; S00.81XA Abrasion of other part of head, initial encounter; H20.9 Unspecified iridocyclitis; M25.512 Pain in left shoulder; M54.5 Low back pain; M25.562 Pain in left knee; W07.XXXA Fall from chair, initial encounter; Y93.84 Activity, sleeping; Y92.009 Unspecified place in unspecified non-institutional (private) residence as the place of occurrence of the external cause; H53.8 Other visual disturbances; I25.10 Atherosclerotic heart disease of native coronary artery without angina pectoris; I10 Essential (primary) hypertension; E11.9 Type 2 diabetes mellitus without complications; Z95.1 Presence of aortocoronary bypass graft; Z88.1 Allergy status to other antibiotic agents
CPT/HCPCS: 99284; 73564; 72110; 73030; 70450; L3650

== ENCOUNTER 2018-02-10 11:42 | Emergency (ER) | payer MEDICARE, OTHER ==
--- NOTE | 2018-02-10 11:52 | ER Document Report ---
ED Medical Screen (RME) - General Chief Complaint: Back Pain Stated Complaint: BACK PAIN Time Seen by Provider: 02/10/18 11:50 Mode of Arrival: Wheelchair Information source: Patient, Relative TRAVEL OUTSIDE OF THE [place] IN LAST 30 DAYS: No - HPI Patient complains to provider of: LBP Onset: Other - Pt . with LBP for the past week with exacerbation in the past few days. Has had fall recently - Related Data Allergies/Adverse Reactions: sulfamethoxazole [From Bactrim] Allergy (Verified 02/10/18 11:43) trimethoprim [From Bactrim] Allergy (Verified 02/10/18 11:43) Past Medical History - Past Medical History Cardiac Medical History: Reports: Hx Coronary Artery Disease, Hx Hypercholesterolemia, Hx Hypertension Denies: Hx Congestive Heart Failure, Hx Peripheral Vascular Disease, Hx Pulmonary Embolism Pulmonary Medical History: Reports: Hx Sleep Apnea Endocrine Medical History: Reports: Hx Diabetes Mellitus Type 2 Renal/ Medical History: Denies: Hx Peritoneal Dialysis GI Medical History: Reports: Hx Gastroesophageal Reflux Disease Musculoskeltal Medical History: Reports Hx Arthritis Psychiatric Medical History: Denies: Hx Depression Past Surgical History: Reports: Hx Cardiac Surgery - bypass x4, Hx Coronary Artery Bypass Graft - 1997, Hx Orthopedic Surgery - Left shoulder 2 weeks ago, Other - Ablasion after SVT - Immunizations Hx Diphtheria, Pertussis, Tetanus Vaccination: - unknown History of Influenza Vaccine for 11/2016 - 04/2017 Season: Yes Influenza Administration Date for 11/2016 - 04/2017 Season: 09/20/16 Physical Exam - Vital signs Vitals: Temp Pulse Resp BP Pulse Ox 98.6 F 75 18 127/59 H 94 02/10/18 11:46 02/10/18 11:46 02/10/18 11:46 02/10/18 11:46 02/10/18 11:46 Course - Vital Signs Vital signs: Temp Pulse Resp BP Pulse Ox 98.6 F 75 18 127/59 H 94 02/10/18 11:46 02/10/18 11:46 02/10/18 11:46 02/10/18 11:46 02/10/18 11:46 Doctor's Discharge - Discharge Referrals: NATHAN SHERWOOD MD [Primary Care Provider] - Follow up as needed
--- NOTE | 2018-02-10 12:37 | RADIOLOGY REPORT (SQ) ---
EXAM DESCRIPTION: L SPINE WHOLE COMPLETED DATE/TIME: 02/10/2018 12:19 pm REASON FOR STUDY: LBP COMPARISON: 01/24/2018. NUMBER OF VIEWS: Five views including obliques. TECHNIQUE: AP, lateral, oblique, and sacral radiographic images acquired of the lumbar spine. LIMITATIONS: None. FINDINGS: MINERALIZATION: Normal. SEGMENTATION: Normal. No transitional anatomy. ALIGNMENT: Normal. VERTEBRAE/DISCS: There is evidence of marginal osteophyte formation at multiple levels. Disc space narrowing prominent at L1- L3 and L5-S1. :PARASPINAL SOFT TISSUES: Normal. PELVIS: Intact as visualized. No fractures or worrisome bone lesions. SI joints intact. OTHER: Atherosclerotic ectasia of the abdominal aorta measuring 3.7 cm in AP diameter. Atherosclerot ic change of iliac vessels. IMPRESSION: 1. Lumbar spondylosis. Degenerative disc disease at L1-L3 and L5-S1. TECHNICAL DOCUMENTATION: JOB ID: [id number] 2010 [employer]- All Rights Reserved Reading location - IP/workstation name: [email or web address]
[2018-02-10] MEDS ORDERED: HYDROCODONE/ACETAMINOPHEN 10-325 MG TABLET PO ONE (13:24)
--- NOTE | 2018-02-10 13:33 | ER Document Report ---
ED General - General Chief Complaint: Back Pain Stated Complaint: BACK PAIN Time Seen by Provider: 02/10/18 11:50 Mode of Arrival: Wheelchair Information source: Patient, Relative TRAVEL OUTSIDE OF THE [place] IN LAST 30 DAYS: No - HPI Patient complains to provider of: back pain Onset: Other - 77-year-old with chronic back pain as well as chronic joint pain that presents for evaluation of back pain after prolonged car trip to [place] and then back. She notes that she has had issues related to these in the past and had contacted her pain management doctor to ask if it was okay to increase her dose but had not been able to reach him. Nothing it seemed to make it better, nothing seems to make it worse. She has not been able to get up and around as she usually is. - Related Data Allergies/Adverse Reactions: sulfamethoxazole [From Bactrim] Allergy (Verified 02/10/18 11:43) trimethoprim [From Bactrim] Allergy (Verified 02/10/18 11:43) Past Medical History - General Information source: Patient, Relative - Social History Smoking Status: Never Smoker Chew tobacco use (# tins/day): No Frequency of alcohol use: None Drug Abuse: None Family History: CAD, Hypertension Patient has suicidal ideation: No Patient has homicidal ideation: No - Past Medical History Cardiac Medical History: Reports: Hx Coronary Artery Disease, Hx Hypercholesterolemia, Hx Hypertension Denies: Hx Congestive Heart Failure, Hx Peripheral Vascular Disease, Hx Pulmonary Embolism Pulmonary Medical History: Reports: Hx Sleep Apnea Endocrine Medical History: Reports: Hx Diabetes Mellitus Type 2 Renal/ Medical History: Denies: Hx Peritoneal Dialysis GI Medical History: Reports: Hx Gastroesophageal Reflux Disease Musculoskeletal Medical History: Reports Hx Arthritis Psychiatric Medical History: Denies: Hx Depression Past Surgical History: Reports: Hx Cardiac Surgery - bypass x4, Hx Coronary Artery Bypass Graft - 1997, Hx Orthopedic Surgery - Left shoulder 2 weeks ago, Other - Ablasion after SVT - Immunizations Hx Diphtheria, Pertussis, Tetanus Vaccination: - unknown Review of Systems - Review of Systems -: Yes All other systems reviewed and negative Physical Exam - Vital signs Vitals: Temp Pulse Resp BP Pulse Ox 98.6 F 75 18 127/59 H 94 02/10/18 11:46 02/10/18 11:46 02/10/18 11:46 02/10/18 11:46 02/10/18 11:46 - General General appearance: Alert In distress: Mild - HEENT Head: Normocephalic, Atraumatic Eyes: Normal Pupils: PERRL - Respiratory Respiratory status: No respiratory distress Chest status: Nontender Breath sounds: Normal Chest palpation: Normal - Cardiovascular Rhythm: Regular Heart sounds: Normal auscultation Murmur: No - Abdominal Inspection: Normal Distension: No distension Bowel sounds: Normal Tenderness: Nontender Organomegaly: No organomegaly - Back Back: Tender - Tenderness to palpation in the right paraspinal muscles near the lumbar spine - Extremities General upper extremity: Normal inspection, Nontender, Normal color, Normal ROM, Normal temperature General lower extremity: Normal inspection, Nontender, Normal color, Normal ROM, Normal temperature, Normal weight bearing. No: Cliff's sign - Neurological Neuro grossly intact: Yes Cognition: Normal Orientation: AAOx4 [place] Coma Scale Eye Opening: Spontaneous [place]hele Coma Scale Verbal: Oriented [place] Coma Scale Motor: Obeys Commands Michele Coma Scale Total: 15 Speech: Normal Motor strength normal: LUE, RUE, LLE, RLE Sensory: Normal - Psychological Associated symptoms: Normal affect, Normal mood Course - Re-evaluation Re-evalutation: 77-year-old female who comes in for back spasms in the setting of previous episodes of back pain which have been attributed to degenerative disks, obesity and chronic pain. On examination she has no new stigmata to suggest a more serious underlying pathology such as but not limited to AAA, epidural abscess, or cauda equina syndrome. As she does not have such do not believe she warrants MRI imaging of the lumbar spine at this time. Through triage she had labs drawn as well as an x-ray taken of the lumbar spine which shows her chronic changes. She states that if she was able to receive some relief utilizing standard pain medications she would be able to get up and around as previous. Because she is neurologically intact will address her pain utilizing her standard home regimen in a more aggressive fashion. We will plan to increase dose to 10 mg hydrocodone in addition to the Tylenol. We will also administer Lidoderm. Following administration of hydrocodone in the emergency department the patient was able to ambulate, she was sitting upright in a chair, she remained neurologically intact. We will plan for discharge with return precautions and continued use of her cane. She has been given a brief course of oral narcotic medication and encouraged to follow-up with her primary pain management physician. - Vital Signs Vital signs: Temp Pulse Resp BP Pulse Ox 98.6 F 75 18 127/59 H 94 02/10/18 11:46 02/10/18 11:46 02/10/18 11:46 02/10/18 11:46 02/10/18 11:46 Discharge - Discharge Clinical Impression: Muscle spasm Back pain Qualifiers: Back pain location: low back pain Chronicity: acute Back pain laterality: right Sciatica presence: unspecified whether sciatica present Qualified Code(s): M54.5 - Low back pain Obesity Qualifiers: Obesity type: unspecified obesity type Obesity classification: unspecified obesity classification Serious obesity comorbidity presence: unspecified whether serious comorbidity present Qualified Code(s): E66.9 - Obesity, unspecified Condition: Good Disposition: HOME, SELF-CARE Instructions: Low Back Pain ([facility]), Muscle Strain ([facility]), Oral Narcotic Medication ([facility]), Warm Packs ([facility]) Additional Instructions: You were seen today in the emergency department for your low back pain. You had an evaluation including an x-ray as well as a physical exam. The x-ray shows only her chronic back problems. You should use the pain medication prescribed to you only as needed, will be important that you call your pain management doctor tomorrow to make sure they are aware of the change to your medications. Prescriptions: Hydrocodone/Acetaminophen [[place] 10-325 Tablet] 1 each PO TID PRN 4 Days #12 tablet PRN Reason: Lidocaine [Lidoderm 5% (700 mg) Transdermal Patch] 1 patch TP DAILY #10 adh..patch Referrals: NATHAN SHERWOOD MD [Primary Care Provider] - Follow up as needed
[2018-02-10 15:31] VITALS: BP 121/62
== END 2018-02-10 15:31 | disposition home or self-care (01) ==
LOC: ER 11:42
DX: M62.830 Muscle spasm of back (principal); M54.5 Low back pain; Z88.3 Allergy status to other anti-infective agents; I25.10 Atherosclerotic heart disease of native coronary artery without angina pectoris; E78.00 Pure hypercholesterolemia, unspecified; I10 Essential (primary) hypertension; E11.9 Type 2 diabetes mellitus without complications; Z95.1 Presence of aortocoronary bypass graft
CPT/HCPCS: 99283; 72110; A9270

== ENCOUNTER 2019-07-22 14:16 | Emergency (ER) | payer MEDICARE, OTHER ==
--- NOTE | 2019-07-22 15:25 | ER Document Report ---
ED General - General Chief Complaint: Breathing Difficulty Stated Complaint: DIFFICULTY BREATHING Time Seen by Provider: 07/22/19 14:52 Primary Care Provider: NATHAN SHERWOOD MD [Primary Care Provider] - Follow up as needed Notes: Patient presents shortness of breath worse with lying flat, feels a rattling in her lungs when she goes to bed and gets up in the morning. Coughing up brown phlegm. Going on for several days. Positive weakness. No increased leg swelling no fever no chest pain or discomfort. History of quadruple bypass. Takes small dose of Lasix. The patient has NO history of travel to high-risk locations for COVID-19 or contact with persons under investigation for or confirmed positive for COVID-19. TRAVEL OUTSIDE OF THE [place] IN LAST 30 DAYS: No - Related Data Allergies/Adverse Reactions: sulfamethoxazole [From Bactrim] Allergy (Verified 02/10/18 11:43) trimethoprim [From Bactrim] Allergy (Verified 02/10/18 11:43) Past Medical History - Social History Smoking Status: Never Smoker Family History: CAD, Hypertension - Past Medical History Cardiac Medical History: Reports: Hx Coronary Artery Disease, Hx Hypercholesterolemia, Hx Hypertension Denies: Hx Congestive Heart Failure, Hx Peripheral Vascular Disease, Hx Pulmonary Embolism Pulmonary Medical History: Reports: Hx Sleep Apnea Endocrine Medical History: Reports: Hx Diabetes Mellitus Type 2 Renal/ Medical History: Denies: Hx Peritoneal Dialysis GI Medical History: Reports: Hx Gastroesophageal Reflux Disease Musculoskeletal Medical History: Reports Hx Arthritis Psychiatric Medical History: Denies: Hx Depression Past Surgical History: Reports: Hx Cardiac Surgery - bypass x4, Hx Coronary Artery Bypass Graft - 1997, Hx Orthopedic Surgery - Left shoulder 2 weeks ago, Other - Ablasion after SVT - Immunizations Hx Diphtheria, Pertussis, Tetanus Vaccination: - unknown Review of Systems - Review of Systems Notes: REVIEW OF SYSTEMS GEN: Denies fever, chills, weight loss ENT: Denies sore throat, nasal discharge, ear pain EYES: Denies blurry vision, eye pain, discharge CV: Denies chest pain, palpitations, edema RESP: Cough and shortness of breath GI: Denies abdominal pain, nausea, vomiting, diarrhea MSK: Denies joint pain/swelling, edema, SKIN: Denies rash, skin lesions LYMPH: Denies swollen glands/lymph nodes NEURO: Denies headache, focal weakness or numbness, dizziness PSYCH: Denies depression, suicidal or homicidal ideation PHYSICAL EXAMINATION General: No acute distress, well-nourished Head: Atraumatic, normocephalic ENT: Mouth normal, oropharynx moist, no exudates or tonsillar enlargement Eyes: Conjunctiva normal, pupils equal, lids normal Neck: No JVD, supple, no guarding CVS: Normal rate, regular rhythm, no murmurs Resp: No resp distress, equal and normal breath sounds bilaterally GI: Nondistended, soft, no tenderness to palpation, no rebound or guarding Ext: No deformities, no edema, normal range of motion in upper and lower ext Back: No CVA or midline TTP Skin: No rash, warm Lymphatic: No lymphadeopathy noted Neuro: Awake, alert. Face symmetric. GCS 15. Physical Exam - Vital signs Vitals: Temp Pulse Resp BP Pulse Ox 98.6 F 73 20 140/42 H 95 07/22/19 14:59 07/22/19 14:59 07/22/19 14:59 07/22/19 14:59 07/22/19 14:59 Course - Re-evaluation Re-evalutation: 07/22/19 18:14 Positional dyspnea with "rattling" not reproduced on exam normal saturation. Bronchitis versus mild atelectasis given her size/hypoventilation, versus mild heart failure. BNP mildly elevated but no infiltrates. Doubt COVID. Offered to start a low- dose of Lasix but she is already on a water pill, does not know the name or dose and does not have her meds or her list with her today. I prescribed her a very small dose of Lasix, counseled her on possible viral bronchitis and asked her to call her doctor to decide if she started or not. Discharge 07/22/19 18:15 I have discussed with the patient there likely diagnosis, aftercare plan, follow-up plans and my usual and customary return precautions. They verbalized understanding of this. - Vital Signs Vital signs: Temp Pulse Resp BP Pulse Ox 98.6 F 73 20 140/42 H 95 07/22/19 14:59 07/22/19 14:59 07/22/19 14:59 07/22/19 14:59 07/22/19 14:59 - Laboratory Result Diagrams: 07/22/19 15:44 06/01/20 15:44 Laboratory results interpreted by me: 07/22/19 07/22/19 07/22/19 15:44 15:44 15:44 Hgb 10.1 L Hct 31.0 L MCV 78 L MCH 25.4 L RDW 15.8 H BUN 23 H Glucose 125 H NT-Pro-B Natriuret Pep 887 H - Diagnostic Test Radiology reviewed: Image reviewed, Reports reviewed - EKG Interpretation by Me EKG shows normal: Sinus rhythm Rate: Normal Rhythm: NSR Discharge - Discharge Clinical Impression: Dyspnea Qualifiers: Dyspnea type: shortness of breath Qualified Code(s): R06.02 - Shortness of breath Heart failure Qualifiers: Heart failure type: other Qualified Code(s): I50.89 - Other heart failure Condition: Good Disposition: HOME, SELF-CARE Prescriptions: Furosemide [Lasix 20 mg Tablet] 20 mg PO QAM #10 tablet Referrals: NATHAN SHERWOOD MD [Primary Care Provider] - Follow up as needed
--- NOTE | 2019-07-22 15:33 | RADIOLOGY REPORT (SQ) ---
EXAM DESCRIPTION: CHEST SINGLE VIEW IMAGES COMPLETED DATE/TIME: 07/22/2019 3:20 pm REASON FOR STUDY: short of breath COMPARISON: PA and lateral views of the chest from 01/19/2016. EXAM PARAMETERS: NUMBER OF VIEWS: One view. TECHNIQUE: An AP view of the chest was obtained. RADIATION DOSE: NA LIMITATIONS: None. FINDINGS: LUNGS AND PLEURA: No consolidation, pleural effusion or pneumothorax. MEDIASTINUM AND HILAR STRUCTURES: No mediastinal or hilar contour abnormality. HEART AND VASCULAR STRUCTURES: The cardiac silhouette is enlarged. BONES: No acute findings. HARDWARE: Sternotomy wires and left shoulder prosthesis. OTHER: No other finding. IMPRESSION: No acute cardiopulmonary process. TECHNICAL DOCUMENTATION: JOB ID: [id number] 2010 [employer]- All Rights Reserved Reading location - IP/workstation name: [email or web address]
[2019-07-22 16:04] LABS: ABSOLUTE EOSINOPHILS # (AUTO) 0.2 10^3/uL (0.0-0.6); ABSOLUTE LYMPHOCYTES (AUTO) 1.8 10^3/uL (0.5-4.7); ABSOLUTE MONOCYTES (AUTO) 0.6 10^3/uL (0.1-1.4); BASOPHILS % (AUTO) 0.3 % (0-2); HEMOGLOBIN 10.1 g/dL (12.0-15.5); LYMPHOCYTES % (AUTO) 20.9 % (13-45); MEAN CORPUSCULAR HEMOGLOBIN 25.4 pg (27.0-33.4); MEAN CORPUSCULAR HGB CONC 32.5 g/dL (32.0-36.0); MEAN CORPUSCULAR VOLUME 78 fl (80-97); MONOCYTES % (AUTO) 7.4 % (3-13); PLATELET COUNT 181 10^3/uL (150-450); RED BLOOD COUNT 3.97 10^6/uL (3.72-5.28); RED CELL DISTRIBUTION WIDTH 15.8 % (11.5-14.0); SEGMENTED NEUTROPHILS % (AUTO) 69.4 % (42-78); TOTAL CELLS COUNTED % (AUTO) 100 %; WHITE BLOOD COUNT 8.7 10^3/uL (4.0-10.5)
[2019-07-22 16:30] LABS: ANION GAP 6 (5-19); BLOOD UREA NITROGEN 23 mg/dL (7-20); CALCIUM 8.7 mg/dL (8.4-10.2); CARBON DIOXIDE 29 mmol/L (22-30); CHLORIDE 105 mmol/L (98-107); GLUCOSE 125 mg/dL (75-110); POTASSIUM 4.2 mmol/L (3.6-5.0)
[2019-07-22 18:58] VITALS: BP 150/87
--- NOTE | 2019-07-22 22:36 | EKG REPORT ---
SEVERITY:- ABNORMAL ECG - SINUS RHYTHM MULTIPLE VENTRICULAR PREMATURE COMPLEXES BORDERLINE LEFT AXIS DEVIATION NONSPECIFIC T ABNORMALITIES, ANTERIOR LEADS : Confirmed by: Aubree Bob 22-Jul-2019 22:35:59
== END 2019-07-22 19:34 | disposition home or self-care (01) ==
LOC: ER 14:16
DX: R06.02 Shortness of breath (principal); R05 Cough; I50.89 Other heart failure; I25.10 Atherosclerotic heart disease of native coronary artery without angina pectoris; E78.00 Pure hypercholesterolemia, unspecified; E11.9 Type 2 diabetes mellitus without complications; Z88.3 Allergy status to other anti-infective agents; Z95.1 Presence of aortocoronary bypass graft
CPT/HCPCS: 36415; 71045; 80048; 82962; 83880; 85025; 93005; 93010; 99285